=== PATIENT | female | born 1995 | race Caucasian/White ===

== ENCOUNTER 2016-09-13 21:27 | Emergency (ER) | payer OTHER ==
[2016-09-13 21:38] VITALS: RESP 16; TEMP 97.8
[2016-09-13] MEDS ORDERED: IBUPROFEN 800 MG TAB PO STA (23:25)
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
[2016-09-14 00:52] VITALS: BP 117/64; PULSE 71
== END 2016-09-14 01:01 | disposition home or self-care (01) ==
LOC: EC 21:27
DX: R10.12 Left upper quadrant pain (principal); Z79.3 Long term (current) use of hormonal contraceptives; Z88.1 Allergy status to other antibiotic agents
CPT/HCPCS: 76705; 99284

== ENCOUNTER → 2017-01-03 | Outpatient (CLI) | payer OTHER ==
--- NOTE | 2017-01-03 13:22 | US ---
EXAMINATION TYPE: US OB anatomy transabd DATE OF EXAM: 01/03/2017 COMPARISON: NONE HISTORY: O36.62X0 Large for Dates TECHNIQUE: Transabdominal (TA) EXAM MEASUREMENTS: GESTATIONAL AGE / DATING Physician Established: (19 weeks/5 days) EDC: 05/2017 Dates by LMP: (19 weeks/2 days) EDC: 05/27/2017 Dates by First Scan: (19 weeks/0 days) EDC: 05/25/2017 Dates by Current Scan for: (18 weeks/5 days) EDC: 06/01/2017 SURVEY IUP: Single PLACENTA: Posterior PREVIA: No previa FÉLIX: 11.3 cm Normal CERVICAL LENGTH (transabdominal: norm > 3.0cm): 3.8 cm BIOMETRY PRESENTATION: Breech LIE: Oblique BPD: 4.0 cm 18 weeks / 1 days HC: 15.6 cm 18 weeks / 3 days AC: 12.9 cm 18 weeks / 3 days FL: 3.2 cm 20 weeks / 0 days ESTIMATED WEIGHT IN GRAMS: 272 grams ESTIMATED WEIGHT IN LBS/OZS: 0 lbs. 10 oz. WEIGHT PERCENTAGE BASED ON ESTABLISHED DATE: 15 % HC/AC: 1.21 Normal FL/AC: 24 Normal HEART RATE: 153 bpm RHYTHM: Normal ANATOMY SEEN (within normal limits): * Lateral Vent (< 1 cm) 0.8 cm * Cisterna Magna (< 1.1 cm) 0.4 cm * Nuchal Fold (< 0.6 cm) 0.3 cm * Cerebellum (varies with age) 2.0 cm Choroid Plexus (bilateral) Midline Falx Cavus Septi Pellucidi Four Chamber Heart Outflow tracts: LVOT/RVOT Stomach Situs Nose / Lips Diaphragm Kidneys (bilateral) Bladder Cord Insert Three Vessel Cord Longitudinal Spine Transverse Spine Arms (bilateral) Legs (bilateral) MATERNAL WALL MEASUREMENT: 5.0 cm from skin to anterior uterine wall (if exam limited due to body mcclelland bitus). Some exam limitations due to habitus and attenuation. IMPRESSION: Single viable intrauterine . Estimated date of confinement 06/01/2017. Current breech presen tation.
== END | disposition home or self-care (01) ==
LOC: RADUSWWP 12:23
PROVIDERS: ATTEND Obstetrics & Gynecology
DX: O32.1XX0 Maternal care for breech presentation, not applicable or unspecified (principal); Z3A.18 18 weeks gestation of pregnancy
CPT/HCPCS: 76811

== ENCOUNTER → 2017-02-15 | Outpatient (CLI) | payer OTHER ==
[2017-02-15 12:33] LABS: CH 32.1; CHCM 33.3; HCT 33.9 % (34.0-46.0); HDW 2.77; HGB 11.1 gm/dL (11.4-16.0); MCH 31.8 pg (25.0-35.0); MCHC 32.7 g/dL (31.0-37.0); MCV 97.2 fL (80.0-100.0); Mean Platelet Volume 7.8; RBC 3.49 m/uL (3.80-5.40); RDW 14.2 % (11.5-15.5); WBC 12.1 k/uL (4.0-11.0)
== END ==
LOC: LABWHC1 11:01
PROVIDERS: ATTEND Obstetrics & Gynecology
DX: Z34.02 Encounter for supervision of normal first pregnancy, second trimester (principal); Z3A.00 Weeks of gestation of pregnancy not specified
CPT/HCPCS: 36415; 82950; 85027

== ENCOUNTER 2017-03-29 13:56 | Outpatient (CLI) | payer OTHER ==
[2017-03-29 15:09] VITALS: BP 118/56; PULSE 91; RESP 18; TEMP 96.6
--- NOTE | 2017-03-30 05:56 | P.MSEPDOC ---
Presenting Problems - Arrival Data Date of Arrival on Unit: 03/29/17 Time of Arrival on Unit: 13:55 Mode of Transport: Ambulatory - Complaint OB-Reason for Admission/Chief Complaint: Elevated Blood Pressure Medical History - Information : 1 Para: 0 Term: 0 : 0 Abortions: Spontaneous or Elective: 0 Number of Living Children: 0 - Gestational Age Expected Date of Delivery: 05/27/17 Gestational Age by MARLENE (wks/days): 31 Weeks and 5 Days Review of Systems - Review of Systems Constitutional: No problems Breast: No problems ENT: No problems Cardiovascular: No problems Respiratory: No problems Gastrointestinal: No problems Genitourinary: No problems Musculoskeletal: No problems Neurological: No problems Skin: No problems Vital Signs - Temperature Temperature: 96.6 F Temperature Source: Tympanic - Pulse Pulse Oximetery Pulse Rate: 91 Pulse Assessment Method: Pulse Oximetry - Respirations Respiratory Rate: 18 Oxygen Delivery Method: Room Air - Blood Pressure Right Arm Blood Pressure: 118/56 Blood Pressure Mean: 76 Blood Pressure Source: Automatic Cuff Medical Screen Scoring (Pre) - Cervical Exam Dilation: Exam Deferred Effacement: Exam Deferred Membranes: Intact - Uterine Contractions Frequency: N/A Duration: N/A Intensity: N/A - Maternal Vital Signs Maternal Temperature: N/A Maternal Blood Pressure: N/A Signs of Preeclampsia: N/A Maternal Respirations: N/A - Maternal Trauma Maternal Trauma: N/A - Assessment Baseline FHR: 135 Heart Rate - NICHD Category: Category I (Normal) = 0 NST: Reactive Position: N/A Station: N/A - Total Score Total Score (Pre): 0 - Level of Risk Level of Risk: Low (0-5) Physician Notification (Pre) - Physician Notified Physician Notified Date: 03/29/17 Physician Notified Time: 14:45 Physician/Practitioner Notifed:: Dr. Epperson Spoke With: Dr. Epperson - Notification Comment Comment: Notified Dr. Epperson of pts BPs and reactive NST with 2 variables noted at 1436 down to 100 bpm for 15-20 seconds. Orders for discharge received. Disposition - Disposition OB Disposition: Discharge to home Discharge Date: 03/29/17 Discharge Time: 15:00 I agree with the RN Medical Screening Exam: Yes Risk & Benefit of care provided described in d/c instruction: Yes Diagnosis: GESTATIONAL HTN W/O SIGNIFICANT PROTEINURIA, THIRD TRIMESTER (Patient 's blood pressures were normal without evidence of gestational hypertension.)
== END 2017-03-29 15:00 | disposition home or self-care (01) ==
LOC: FBPOP 13:56
PROVIDERS: ATTEND Obstetrics & Gynecology
DX: O13.3 Gestational [pregnancy-induced] hypertension without significant proteinuria, third trimester (principal); Z3A.31 31 weeks gestation of pregnancy
CPT/HCPCS: 59025; G0463; 99213

== ENCOUNTER 2017-04-04 15:26 | Outpatient (CLI) | payer OTHER ==
[2017-04-04 15:54] VITALS: RESP 17; TEMP 98.1
[2017-04-04 16:21] VITALS: BP 117/66; PULSE 87
--- NOTE | 2017-04-04 17:30 | P.MSEPDOC ---
Presenting Problems - Arrival Data Date of Arrival on Unit: 04/04/17 Time of Arrival on Unit: 15:26 Mode of Transport: Ambulatory - Complaint OB-Reason for Admission/Chief Complaint: Decreased Movement Comment: pt reported not feeling fetus move since 2330 last night, pt was able to feel movement after being placed on for nst Medical History - Information : 1 Para: 0 Term: 0 : 0 Abortions: Spontaneous or Elective: 0 Number of Living Children: 0 - Gestational Age Gestational Age by MARLENE (wks/days): 32 Weeks and 3 Days Review of Systems - Review of Systems Constitutional: No problems Breast: No problems ENT: No problems Cardiovascular: No problems Respiratory: No problems Gastrointestinal: No problems Genitourinary: No problems Musculoskeletal: No problems Neurological: No problems Skin: No problems Vital Signs - Temperature Temperature: 98.1 F Temperature Source: Oral - Pulse Right Brachial Pulse Rate: 87 Pulse Assessment Method: Automatic Cuff - Respirations Respiratory Rate: 17 Oxygen Delivery Method: Room Air O2 Sat by Pulse Oximetry: 97 - Blood Pressure Right Arm Blood Pressure: 117/66 Blood Pressure Mean: 83 Blood Pressure Source: Automatic Cuff Medical Screen Scoring (Pre) - Cervical Exam Dilation: Exam Deferred Effacement: Exam Deferred Membranes: Intact - Uterine Contractions Frequency: > 5 minutes apart = 1 Duration: > 40 seconds = 2 Intensity: N/A - Maternal Vital Signs Maternal Temperature: N/A Maternal Blood Pressure: N/A Signs of Preeclampsia: N/A Maternal Respirations: N/A - Maternal Trauma Maternal Trauma: N/A - Assessment Baseline FHR: 140 Heart Rate - NICHD Category: Category I (Normal) = 0 NST: Reactive Position: N/A - Total Score Total Score (Pre): 3 - Level of Risk Level of Risk: Low (0-5) Physician Notification (Pre) - Physician Notified Physician Notified Date: 04/04/17 Physician Notified Time: 16:00 Physician/Practitioner Notifed:: dr fulton Spoke With: dr fulton New Order Received: Yes (la home) Disposition - Disposition OB Disposition: Discharge to home, Written follow up instructions reviewed Discharge Date: 04/04/17 Discharge Time: 16:10 I agree with the RN Medical Screening Exam: Yes Risk & Benefit of care provided described in d/c instruction: Yes Diagnosis: DECREASED MOVEMENTS, THIRD TRIMESTER, FETUS 1
== END 2017-04-04 16:10 | disposition home or self-care (01) ==
LOC: FBPOP 15:26
PROVIDERS: ATTEND Obstetrics & Gynecology
DX: O36.8131 Decreased fetal movements, third trimester, fetus 1 (principal); Z3A.32 32 weeks gestation of pregnancy
CPT/HCPCS: 59025; G0463; 99213

== ENCOUNTER 2017-04-11 18:30 | Outpatient (CLI) | payer OTHER ==
[2017-04-11 18:49] VITALS: BP 128/75; PULSE 88; RESP 18; TEMP 96.7
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
== END 2017-04-11 21:00 | disposition home or self-care (01) ==
LOC: FBPOP 18:30
PROVIDERS: ATTEND Obstetrics & Gynecology
DX: O26.93 Pregnancy related conditions, unspecified, third trimester (principal); Z3A.33 33 weeks gestation of pregnancy
CPT/HCPCS: 59025; G0463; 99213

== ENCOUNTER 2017-05-23 21:24 | Inpatient (IN) | payer OTHER ==
[2017-05-23] MEDS ORDERED: OXYTOCIN 10 UNIT/ML 1 ML VIAL IM PRN (22:09)
[2017-05-23] MEDS ORDERED: CARBOPROST TROMETHAMINE 250 MCG/ML 1 ML AMP IM PRN (22:09)
[2017-05-23] MEDS ORDERED: METHYLERGONOVINE 0.2 MG/ML 1 ML AMP IM PRN (22:09)
[2017-05-23] MEDS ORDERED: LIDOCAINE 1% (PF) 10 MG/ML (30 ML SDV) SQ PRN (22:09)
[2017-05-23] MEDS ORDERED: TERBUTALINE 1 MG/ML VIAL SQ PRN (22:09)
[2017-05-23] MEDS ORDERED: OXYTOCIN 20 UNITS/1000 ML NS 1,000 ML IV SCH (22:15)
[2017-05-23] MEDS: LACTATED RINGERS 1,000 ML IV SCH (22:35)
[2017-05-23 22:57] LABS: Basophils % (A) 0 %; CH 30.3; CHCM 32.2; Eosinophils % (A) 0 %; HCT 36.1 % (34.0-46.0); HDW 2.71; HGB 11.5 gm/dL (11.4-16.0); Luc # (Auto) 0.14; Luc % (Auto) 1; Lymphocytes # (A) 1.9 k/uL (1.0-4.8); Lymphocytes % (A) 16 %; MCH 30.1 pg (25.0-35.0); MCHC 31.8 g/dL (31.0-37.0); MCV 94.7 fL (80.0-100.0); Mean Platelet Volume 8.2; Monocytes # (A) 0.6 k/uL (0-1.0); Monocytes % (A) 5 %; Neutrophils # (A) 8.9 k/uL (1.3-7.7); Neutrophils % (A) 77 %; RBC 3.81 m/uL (3.80-5.40); RDW 15.6 % (11.5-15.5); WBC 11.5 k/uL (4.0-11.0); WBC (Perox) 12.36
[2017-05-23 23:03] VITALS: BMI 39.9
[2017-05-24] MEDS: LACTATED RINGERS 1,000 ML IV SCH ×2 (06:07→13:51)
--- NOTE | 2017-05-24 06:34 | P.HPOB ---
History of Present Illness H&P Date: 05/24/17 Chief Complaint: Contractions and leaking fluid This patient is a pleasant 21-year-old 1 para 0 female estimated date of confinement 05/27/2017 estimated gestational age 39-4/7 weeks gestation who is admitted last evening by Dr. Jarrett with complaints of gush of fluid. Amnio sure is positive however patient does have a large fore bag of water. Patient is having contractions however was placed on Pitocin last evening at around 11: 00. care has been uncomplicated. Review of Systems Constitutional: Denies chills, Denies fever Cardiovascular: Denies chest pain, Denies shortness of breath Respiratory: Denies cough Gastrointestinal: Reports heartburn Genitourinary: Reports Menstruation: Reports amenorrhea Past Medical History Past Medical History: No Reported History History of Any Multi-Drug Resistant Organisms: None Reported Past Surgical History: No Surgical Hx Reported Past Anesthesia/Blood Transfusion Reactions: No Reported Reaction Past Psychological History: No Psychological Hx Reported Smoking Status: Never smoker Past Alcohol Use History: None Reported Past Drug Use History: None Reported - Past Family History Mother Family Medical History: No Reported History Medications and Allergies Home Medications Medication Instructions Recorded Confirmed Type Pnv No.95/Ferrous Fum/Folic AC 1 each PO DAILY 03/29/17 05/23/17 History [ Multivitamin Tablet] Allergies Allergy/AdvReac Type Severity Reaction Status Date / Time sulfamethoxazole Allergy Rash/Hives Verified 05/23/17 22:07 [From Bactrim] trimethoprim [From Bactrim] Allergy Rash/Hives Verified 05/23/17 22:07 Exam - Vital Signs Vital signs: Vital Signs Temp Pulse Resp BP 05/23/17 22:00 98.6 F 98 16 142/84 Intake and Output 05/23/17 05/23/17 05/24/17 14:59 22:59 06:59 Intake Total 1000 Balance 1000 Intake: Intake, IV Titration 1000 Amount Oxytocin 20 Units/1000 ml 1000 Ns 1,000 ml @ 1 MILLIUNIT/MIN 3 mls/hr IV .Q24H ADY Rx#:[id number] Other: # Voids 1 1 Weight 119.295 kg Patient Weight 05/24/17 06:59 Weight 119.295 kg - OBG Physical Exam Abdomen: bowel sounds normal, no diffuse tenderness, no bruit present, no guarding noted, no hepatomegaly, no splenomegaly, no mass Vulva: both: normal Vagina: normal moisture, no discharge Cervix: Cervix is 3-4 cm dilated 80% effaced and vertex presentation there is a bag of water palpable. Cervix: no lesion, no discharge Uterus: enlarged Results blood work shows she is O positive, rubella immune, RPR nonreactive, hepatitis B negative, HIV nonreactive, Glucola was normal, group B strep was negative, ultrasounds have been normal. Result Diagrams: 05/23/17 22:47 Abnormal Lab Results - Last 24 Hours (Table) 05/23/17 Range/Units 22:47 WBC 11.5 H (4.0-11.0) k/uL RDW 15.6 H (11.5-15.5) % Neutrophils # 8.9 H (1.3-7.7) k/uL Assessment and Plan (1) Normal labor Narrative/Plan: This is a pleasant 21-year-old 1 para 0 female 39-4/7 weeks gestation with early labor. Although the amnio sure was positive are not convinced the patient had actual rupture membranes because artificial rupture membranes now shows a large copious amount of fluid. Regardless she is in early labor and plan is to anticipate vaginal delivery. Current Visit: Yes Status: Acute Code(s): O80 - ENCOUNTER FOR FULL-TERM UNCOMPLICATED DELIVERY; Z37.9 - OUTCOME OF DELIVERY, UNSPECIFIED SNOMED Code(s ): 49254025
[2017-05-24] MEDS ORDERED: BUTORPHANOL 1 MG/ML 1 ML VIAL IV PRN (08:11)
[2017-05-24] MEDS ORDERED: LANOLIN CREAM 5 GM TUBE TOPICAL PRN (14:31)
[2017-05-24] MEDS ORDERED: Acetaminophen-Codeine 300-30mg TAB PO PRN (14:31)
[2017-05-24] MEDS ORDERED: WITCH HAZEL 1 EACH MED..PAD TOPICAL PRN (14:31)
[2017-05-24] MEDS ORDERED: SIMETHICONE 80 MG CHEWABLE PO PRN (14:31)
[2017-05-24] MEDS ORDERED: ZOLPIDEM 5 MG TAB PO PRN (14:31)
[2017-05-24] MEDS ORDERED: BENZOCAINE/MENTHOL SPRAY 1 GM/SPRAY AEROSOL TOPICAL PRN (14:31)
[2017-05-24] MEDS ORDERED: HYDROCORTISONE 2.5% RECTAL CREAM 30 GM TUBE RECTAL PRN (14:31)
[2017-05-24] MEDS ORDERED: BISACODYL 10 MG SUPP RECTAL PRN (14:31)
[2017-05-24] MEDS ORDERED: ACETAMINOPHEN TAB 325 MG TAB PO PRN (14:31)
[2017-05-24] MEDS ORDERED: diphenhydrAMINE 50 MG/ML 1 ML VIAL IVP PRN (14:31)
[2017-05-24] MEDS ORDERED: OXYTOCIN 20 UNITS/1000 ML NS 1,000 ML IV SCH (14:31)
[2017-05-24] MEDS ORDERED: DIPH,PERTUS(ACELL)TETVAC-LF 0.5 ML VIAL IM ONE (14:31)
[2017-05-24] MEDS ORDERED: diphenhydrAMINE 25 MG CAP PO PRN (14:31)
[2017-05-24] MEDS: SENNOSIDES-DOCUSATE SODIUM 1 EACH TAB PO SCH ×2 (16:04→20:06)
--- NOTE | 2017-05-24 17:56 | P.PROBDLV ---
Vaginal Delivery Note - . Vaginal Delivery Note: Normal vaginal delivery viable female Apgars 8 and 9 delivery time is 1421 hrs. Please see dictated H&P for intimate details of this patient's admission. Brief summary this is a pleasant 21-year-old 1 para 0 female 39-4/7 weeks gestation admitted with suspected spontaneous rupture membranes. Patient has artificial rupture of a 4 bag this morning at 3-4 cm dilated. She has Pitocin augmentation of labor. Patient's labor progresses and she does not want anything for pain control. Patient does get to complete pushes the head to the perineum. Posterior perineum was supported and we have controlled delivery of the 's head over the intact perineum. Mouth and nares are bulb suctioned. There is no evidence of nuchal cord. With gentle downward traction we then have delivery the anterior and posterior shoulder and rest this 's body. This is a vigorous viable female infant Apgars are 8 and 9 delivery time is 1421 hrs. After delivery of the infant the umbilical cords doubly clamped and cut appears to be trivascular. The placenta is then spontaneously delivered intact. Inspection of the perineum shows a first- degree right labial laceration and a first-degree left vaginal laceration. Right labial laceration does dissect up into the right vagina. Using a 3-0 suture and local anesthetic I reapproximate this is best as possible. Good hemostasis is noted. Estimated blood loss is 250 mL. There are no complications. and mother are stable in delivery room.
[2017-05-24] MEDS: IBUPROFEN 600 MG TAB PO PRN (20:06)
--- NOTE | 2017-05-25 06:28 | P.PNOBGVD ---
Subjective - Subjective Patient reports: Reports appetite normal, Reports voiding normally, Reports pain well controlled, Reports ambulating normally : doing well Objective - Latest Vital Signs Latest vital signs: Vital Signs Temp Pulse Resp BP 05/24/17 20:00 97.8 F 104 H 16 124/67 05/24/17 16:56 98.1 F 97 16 128/72 05/24/17 16:26 97 16 126/73 05/24/17 15:56 90 16 129/72 05/24/17 15:41 113 H 16 115/69 05/24/17 15:26 106 H 16 151/69 05/24/17 15:11 113 H 16 127/65 05/24/17 14:56 97.2 F L 90 16 132/67 Intake and Output 05/24/17 05/24/17 05/25/17 14:59 22:59 06:59 Intake Total 1000 Output Total 250 Balance 750 Intake: IV 1000 Invasive Line 1 1000 Output: Estimated Blood Loss 250 Other: # Voids 1 1 - Exam Lungs: bilateral: normal Chest: Normal S1, Normal S2 Extremities: Present: normal Abdomen: Present: normal appearance, soft Uterus: Present: normal, firm Assessment and Plan Assessment: day #1. Patient is resting without complaints. Vital signs are stable and she is afebrile. She is having normal lochia. My impression this is a normal course. Plan is to continue routine care discharge home tomorrow. (1) Normal labor Current Visit: Yes Status: Acute Code(s): O80 - ENCOUNTER FOR FULL-TERM UNCOMPLICATED DELIVERY; Z37.9 - OUTCOME OF DELIVERY, UNSPECIFIED SNOMED Code(s ): 88757239
[2017-05-25] MEDS: IBUPROFEN 600 MG TAB PO PRN ×2 (08:40→20:53)
[2017-05-25] MEDS: SENNOSIDES-DOCUSATE SODIUM 1 EACH TAB PO SCH ×2 (08:40→20:53)
[2017-05-25 11:24] LABS: Basophils % (A) 0 %; CH 30.8; CHCM 32.4; Eosinophils % (A) 0 %; HCT 29.2 % (34.0-46.0); HDW 2.85; Luc # (Auto) 0.25; Luc % (Auto) 2; Lymphocytes # (A) 1.5 k/uL (1.0-4.8); Lymphocytes % (A) 10 %; MCH 30.4 pg (25.0-35.0); MCHC 31.8 g/dL (31.0-37.0); MCV 95.5 fL (80.0-100.0); Mean Platelet Volume 7.8; Monocytes # (A) 0.6 k/uL (0-1.0); Monocytes % (A) 4 %; Neutrophils # (A) 12.5 k/uL (1.3-7.7); Neutrophils % (A) 84 %; RBC 3.06 m/uL (3.80-5.40); RDW 14.5 % (11.5-15.5); WBC 14.9 k/uL (4.0-11.0); WBC (Perox) 15.32
[2017-05-25 11:28] LABS: HGB 9.3 gm/dL (11.4-16.0)
[2017-05-25] MEDS ORDERED: CALCIUM CARBONATE 500 MG CHEWABLE PO PRN (13:39)
[2017-05-25] MEDS: Acetaminophen-Codeine 300-30mg TAB PO PRN ×2 (17:09→22:04)
[2017-05-25] MEDS: PRENATAL VIT-IRON-FOLIC ACID 1 EACH CAP PO SCH (19:23)
[2017-05-26] MEDS: Acetaminophen-Codeine 300-30mg TAB PO PRN ×4 (01:33→23:44)
[2017-05-26] MEDS: IBUPROFEN 600 MG TAB PO PRN ×2 (04:26→19:52)
--- NOTE | 2017-05-26 05:42 | P.PNOBGVD ---
Subjective - Subjective Patient reports: Reports appetite normal, Reports voiding normally, Reports pain well controlled, Reports ambulating normally : doing well Objective - Latest Vital Signs Latest vital signs: Vital Signs Temp Pulse Resp BP Pulse Ox 05/26/17 00:00 98.1 F 82 18 122/70 100 05/25/17 16:00 98.7 F 99 18 115/62 05/25/17 08:00 99.6 F 103 H 16 116/58 Intake and Output 05/25/17 05/25/17 05/26/17 14:59 22:59 06:59 Other: # Voids 1 - Exam Lungs: bilateral: normal Chest: Normal S1, Normal S2 Extremities: Present: normal Abdomen: Present: normal appearance, soft Uterus: Present: normal, firm - Labs Labs: Abnormal Lab Results - Last 24 Hours (Table) 05/25/17 Range/Units 10:53 WBC 14.9 H (4.0-11.0) k/uL RBC 3.06 L (3.80-5.40) m/uL Hgb 9.3 L D (11.4-16.0) gm/dL Hct 29.2 L (34.0-46.0) % Neutrophils # 12.5 H (1.3-7.7) k/uL Assessment and Plan Assessment: day #2. Patient is resting without complaints. Vital signs are stable she's afebrile. CBC yesterday was normal. Patient is having normal lochia. Uterus is firm nontender. Impression is normal course. Plan is to discharge home today and continue routine care. (1) Normal labor Current Visit: Yes Status: Acute Code(s): O80 - ENCOUNTER FOR FULL-TERM UNCOMPLICATED DELIVERY; Z37.9 - OUTCOME OF DELIVERY, UNSPECIFIED SNOMED Code(s ): 07376479
--- NOTE | 2017-05-26 05:44 | P.DS ---
Providers Date of admission: 05/23/17 21:43 Expected date of discharge: 05/26/17 Attending physician: Cristopher Epperson Primary care physician: Stated None - Discharge Diagnosis(es) (1) Normal labor Current Visit: Yes Status: Acute Hospital Course: Please see dictated H&P for intimate details of this patient's admission. Brief summary is a pleasant 21-year-old 1 para 0 female 39-4/7 weeks gestation admitted to labor and delivery for active labor. Patient was on have a vaginal delivery viable female . Please see dictated delivery note. day #2 patient's felt be stable for discharge home follow up with me in 6 weeks. Procedures: Normal spontaneous vaginal delivery. Patient Condition at Discharge: Good Plan - Discharge Summary New Discharge Prescriptions: New Acetaminophen-Codeine 300-30mg [Tylenol w/codeine #3] 1 - 2 each PO Q4HR PRN #30 tab PRN Reason: Mild Pain exceeding Tylenol Ibuprofen [Motrin] 600 mg PO Q6HR PRN #40 tab PRN Reason: Mild Pain Or Fever >= 100.5 No Action Pnv No.95/Ferrous Fum/Folic AC [ Multivitamin Tablet] 1 tab PO DAILY Discharge Medication List Pnv No.95/Ferrous Fum/Folic AC [ Multivitamin Tablet] 1 tab PO DAILY [History] Acetaminophen-Codeine 300-30mg [Tylenol w/codeine #3] 1 - 2 each PO Q4HR PRN # 30 tab 05/26/17 [Rx] Ibuprofen [Motrin] 600 mg PO Q6HR PRN #40 tab 05/26/17 [Rx] Follow up Appointment(s)/Referral(s): Cristopher Epperson MD [STAFF PHYSICIAN] - 07/12/17 9:45 am Patient Instructions/Handouts: Vaginal Delivery (DC) Activity/Diet/Wound Care/Special Instructions: No intercourse or anything per vagina for 6 weeks. Please call if any fever, chills, excessive vaginal bleeding, and/or abdominal pain Discharge Disposition: HOME SELF-CARE
[2017-05-26] MEDS: SENNOSIDES-DOCUSATE SODIUM 1 EACH TAB PO SCH ×2 (10:41→19:52)
[2017-05-26] MEDS: PRENATAL VIT-IRON-FOLIC ACID 1 EACH CAP PO SCH (14:19)
[2017-05-26] MEDS ORDERED: ceFAZolin 2 GM in SODIUM CHLORIDE 0.9% 100 ML IVPB ONE (15:44)
[2017-05-26] MEDS ORDERED: ceFAZolin IN SWFI 2 GM/20 ML SYRINGE IVP ONE (16:00)
[2017-05-26] MEDS: LACTATED RINGERS 1,000 ML IV SCH (16:37)
[2017-05-26 16:41] LABS: Basophils % (A) 0 %; Eosinophils # (A) 0.1 k/uL (0-0.7); Eosinophils % (A) 1 %; HCT 28.5 % (34.0-46.0); HDW 2.67; Luc # (Auto) 0.05; Luc % (Auto) 1; Lymphocytes # (A) 0.6 k/uL (1.0-4.8); Lymphocytes % (A) 6 %; MCHC 31.7 g/dL (31.0-37.0); MCV 94.5 fL (80.0-100.0); Mean Platelet Volume 8.2; Monocytes # (A) 0.5 k/uL (0-1.0); Monocytes % (A) 5 %; Neutrophils # (A) 8.8 k/uL (1.3-7.7); Neutrophils % (A) 87 %; RBC 3.02 m/uL (3.80-5.40); RDW 15.8 % (11.5-15.5)
[2017-05-26 17:10] LABS: WBC 10.2 k/uL (4.0-11.0)
--- NOTE | 2017-05-26 17:11 | P.PN ---
Progress Note - Text Progress Note Date: 05/26/17 I was called this afternoon because the patient has developed a temperature to 103. She did develop some chills. She does not have any abdominal pain or cough. She has complained of left lower hip pain since yesterday and continues today. This pain does inhibit her ambulation. I repeated a CBC which is normal with a white count of 10. Examination shows her lungs to be clear, her abdomen to be soft and nontender and no uterine tenderness. She has no CVA tenderness. Pelvic examination shows her area of laceration to be healing well without cellulitis induration or hematoma. Plan at this time is to continue the Ancef which I started earlier and going to add gentamicin cut she still febrile. Due to this left sciatic type pain I am going to get a CAT scan. If she continues to have this discomfort and we'll consider orthopedic evaluation. At this time I have no etiology for her fever. I have canceled her discharge.
[2017-05-26] MEDS ORDERED: RX INFO: IV CONTRAST WAS GIVEN 1 EACH MISC MISCELLANE PRN (17:16)
[2017-05-26] MEDS ORDERED: GENTAMICIN PER PHARMACY MISCELLANE SCH (17:30)
[2017-05-26 17:36] LABS: Basophils % (A) 0 %; CH 29.8; Eosinophils % (A) 0 %; HCT 27.7 % (34.0-46.0); HDW 2.63; HGB 8.8 gm/dL (11.4-16.0); Luc # (Auto) 0.08; Luc % (Auto) 1; Lymphocytes # (A) 0.6 k/uL (1.0-4.8); Lymphocytes % (A) 6 %; MCH 29.8 pg (25.0-35.0); MCHC 31.8 g/dL (31.0-37.0); MCV 93.8 fL (80.0-100.0); Mean Platelet Volume 8.4; Monocytes # (A) 0.5 k/uL (0-1.0); Monocytes % (A) 5 %; Neutrophils % (A) 88 %; RBC 2.96 m/uL (3.80-5.40); RDW 15.7 % (11.5-15.5); WBC 10.2 k/uL (4.0-11.0); WBC (Perox) 10.97
[2017-05-26] MEDS: IOHEXOL 350 MG/ML 25 ML BOTTLE (ORAL USE) PO PRN ×2 (17:54→18:52)
[2017-05-26] MEDS: GENTAMICIN 140 MG in SODIUM CHLORIDE 0.9% 100 ML IVPB SCH (19:40)
--- NOTE | 2017-05-26 20:05 | CT ---
EXAMINATION TYPE: CT abdomen pelvis w con DATE OF EXAM: 05/26/2017 REFERENCE: NONE HISTORY: Fever and left hip pain s/p vaginal delivery HISTORY: Fever and left hip pain. REFERENCE: NONE CT DLP: 2112.7 mGy Automated exposure control for dose reduction was used. TECHNIQUE: Helical acquisition through the abdomen and pelvis was obtained following the oral ingesti on of with Oral Contrast and following intravenous administration of 100 mL of Omnipaque 300. The brady a was reformatted in axial, coronal and sagittal projections. FINDINGS: Visualized portions of the lungs are clear. There is no pleural or pericardial fluid. The heart is mildly enlarged. Within the abdomen, the liver is prominent measuring 22 cm. The spleen is enlarged measuring 17 cm. T he gallbladder is normal. Both adrenal glands are normal. Both kidneys demonstrate function and appear morphologically normal. The pancreas is unremarkable. There is no significant retroperitoneal, iliac or inguinal adenopathy. The bladder is unremarkable. The uterus is very bulky as this patient has just undergone a delivery. The ovaries appear normal. There is no significant diverticular change and there is no radiographic evidence of diverticulitis. The appendix is normal. Small bowel loops are normal. No free fluid and no free air is seen. Both hips appear unremarkable. No bony destructive lesion is seen. No significant degenerative change s seen. IMPRESSION: 1. MILD CARDIOMEGALY. 2. HEPATOSPLENOMEGALY. 3. BULKY UTERUS IN KEEPING WITH RECENT VAGINAL DELIVERY.
[2017-05-26] MEDS: ceFAZolin 1,000 MG in DEXTROSE/WATER 1 50ML.BAG IVPB SCH (23:48)
[2017-05-27] MEDS: LACTATED RINGERS 1,000 ML IV SCH ×3 (02:19→17:29)
[2017-05-27] MEDS: GENTAMICIN 140 MG in SODIUM CHLORIDE 0.9% 100 ML IVPB SCH ×3 (03:56→20:19)
[2017-05-27] MEDS: Acetaminophen-Codeine 300-30mg TAB PO PRN ×3 (03:56→20:15)
[2017-05-27 05:43] LABS: Basophils % (A) 0 %; CH 30.1; CHCM 31.9; Eosinophils # (A) 0.1 k/uL (0-0.7); Eosinophils % (A) 1 %; HCT 26.6 % (34.0-46.0); HDW 2.67; HGB 8.4 gm/dL (11.4-16.0); Luc # (Auto) 0.12; Luc % (Auto) 2; Lymphocytes % (A) 12 %; MCHC 31.6 g/dL (31.0-37.0); MCV 95.1 fL (80.0-100.0); Mean Platelet Volume 8.1; Monocytes # (A) 0.6 k/uL (0-1.0); Monocytes % (A) 7 %; Neutrophils # (A) 6.6 k/uL (1.3-7.7); Neutrophils % (A) 78 %; RBC 2.79 m/uL (3.80-5.40); RDW 15.7 % (11.5-15.5); WBC 8.5 k/uL (4.0-11.0); WBC (Perox) 9.25
--- NOTE | 2017-05-27 06:21 | P.PNOBGVD ---
Subjective - Subjective Patient reports: Reports appetite normal, Reports voiding normally, Reports pain well controlled, Reports ambulating normally [place]: doing well Objective - Latest Vital Signs Latest vital signs: Vital Signs Temp Pulse Resp BP Pulse Ox 05/27/17 00:41 97.8 F 83 16 132/74 05/26/17 19:30 99.1 F 91 18 120/70 100 05/26/17 17:00 103.1 F H 05/26/17 15:20 103 F H 100 16 135/73 05/26/17 08:00 98.8 F 93 16 128/49 Intake and Output 05/26/17 05/26/17 05/27/17 14:59 22:59 06:59 Intake Total 100 Balance 100 Intake: Intake, IV Titration 100 Amount Gentamicin 140 mg In 100 Sodium Chloride 0.9% 100 ml @ 103.5 mls/hr IVPB Q8H [facility] Rx#:[id number] Other: # Voids 1 - Exam Lungs: bilateral: normal Chest: Normal S1, Normal S2 Extremities: Present: normal Abdomen: Present: normal appearance, soft Uterus: Present: normal, firm - Labs Labs: Abnormal Lab Results - Last 24 Hours (Table) 05/26/17 05/26/17 05/27/17 Range/Units 16:30 17:22 05:25 RBC 3.02 L 2.96 L 2.79 L (3.80-5.40) m/uL Hgb 9.0 L 8.8 L 8.4 L (11.4-16.0) gm/dL Hct 28.5 L 27.7 L 26.6 L (34.0-46.0) % RDW 15.8 H 15.7 H 15.7 H (11.5-15.5) % Neutrophils # 8.8 H 9.0 H (1.3-7.7) k/uL Lymphocytes # 0.6 L 0.6 L (1.0-4.8) k/uL Assessment and Plan (1) Normal labor Narrative/Plan: Post day #3. Patient developed a temperature to 103 yesterday. Patient is placed on Ancef and gentamicin. I did do a CAT scan because she is having significant left lower back and sciatic type pain, CAT scan was normal. Serial CBCs show no evidence of a white count elevation. Uterus remains firm and she has no CVA tenderness. I'm uncertain as to the etiology of her fever but she has defervesced. Plan is to continue the IV antibiotics until later today and then change management expert to oral antibiotics and most likely discharge home tomorrow. At this time I have no evidence of endometritis or other infectious etiologies. Patient's sciatic pain appears to be improving as well. I have placed her on Chromagen due to anemia which is just from delivery. Current Visit: Yes Status: Acute Code(s): O80 - ENCOUNTER FOR FULL-TERM UNCOMPLICATED DELIVERY; Z37.9 - OUTCOME OF DELIVERY, UNSPECIFIED SNOMED Code(s ): 74703071
[2017-05-27] MEDS: IBUPROFEN 600 MG TAB PO PRN ×2 (09:12→23:34)
[2017-05-27] MEDS: ceFAZolin 1,000 MG in DEXTROSE/WATER 1 50ML.BAG IVPB SCH ×3 (09:14→23:10)
[2017-05-27] MEDS: IRON AG/C/B12/CA/SUC.ACID/STOM 1 EACH TAB PO SCH (09:14)
[2017-05-27] MEDS: SENNOSIDES-DOCUSATE SODIUM 1 EACH TAB PO SCH ×2 (10:43→21:24)
--- NOTE | 2017-05-27 11:34 | P.PN ---
Progress Note - Text Progress Note Date: 05/27/17 Patient had another temperature/isolated to 101. Other than chills she is having no other symptoms. Plan at this time is to check urine and blood cultures. Also due to the unknown etiology of her fevers and going to ask infectious disease to see her for evaluation This time we'll continue IV antibiotics, reevaluate pending further fevers and ID evaluation.
[2017-05-27] MEDS: PRENATAL VIT-IRON-FOLIC ACID 1 EACH CAP PO SCH (17:29)
[2017-05-27] MEDS ORDERED: GENTAMICIN TROUGH DUE 1 EACH MISC MISCELLANE ONE (18:00)
[2017-05-27 20:03] LABS: Anion Gap 5 mmol/L; Blood Urea Nitrogen 9 mg/dL (7-17); Calcium 8.5 mg/dL (8.4-10.2); Carbon Dioxide 26 mmol/L (22-30); Chloride 106 mmol/L (98-107); Glucose 81 mg/dL (74-99); Non-African American GFR(MDRD) >60 (>60 ml/min/1.73 sqM); Potassium 4.3 mmol/L (3.5-5.1); Sodium 137 mmol/L (137-145)
[2017-05-27] MEDS ORDERED: GENTAMICIN PEAK DUE 1 EACH MISC MISCELLANE ONE (20:30)
--- NOTE | 2017-05-28 | P.CONS ---
History of Present Illness - Reason for Consult Consult date: 05/27/17 - Chief Complaint Fever - History of Present Illness Pleasant 21-year-old female Who presented for a normal spontaneous vaginal delivery. Apparently had somewhat prolonged ruptured membranes. Eventually has delivered a healthy female. The patient herself however developed fever to 103.. She was treated with antimicrobial therapy with cefazolin and gentamicin as well as antipyretics. She's had improvement but then again was febrile today. Because of the recurrent fever the infectious diseases consultation was requested. The patient was she feels considerably better today. Her fevers have improved. Her discomforts improved. She's inputting much more readily. However is complaining of significant pain that she has from the left buttocks area onto the left leg. She felt of the leg might be slightly increased in size. However is noted is not having any difficulties with ambulation today as compared to yesterday. She has no decreased sensation to the left leg. No other neurological complaints. She denying any breast pain. Her milk has started to flow well at this time. Vaginal drainage has improved. She's having no snipping abdominal or lower abdominal pain. Review of Systems As noted complains of fever with chills that have now improved HEENT:Denies headache or acute visual change. Denies sinus or mouth discomforts. Denies neck stiffness or pain. Denies significant oral cavity pain. Denies difficulty on swallowing. Lungs: Denies significant shortness of breath, cough, sputum production, or hemoptysis. Cardiovascular: Denies significant shortness of breath, chest pain, chest wall pain, orthopnea, dyspnea on exertion, syncope Gastrointestinal:Denies nausea, vomiting, diarrhea, constipation, hematemesis, melena, hematochezia. No no significant change of bowel habit noticed. Musculoskeletal: denies significant myalgias or arthralgias. No new joint swelling. Denies new back pain. Skin: No rashes but did have some difficulty with some concern to edema left leg Neuro: Denies headache or visual change. Denies any new onset weakness or difficulty with ambulation. Denies falls or seizures. Skin as noted per the HPI some sciatic-like pain to the left leg. Psychiatric:Denies anxiety or depression. Endocrine: Denies significant fatigue, Past Medical History Past Medical History: No Reported History History of Any Multi-Drug Resistant Organisms: None Reported Past Surgical History: No Surgical Hx Reported Past Anesthesia/Blood Transfusion Reactions: No Reported Reaction Past Psychological History: No Psychological Hx Reported Additional Psychological History / Comment(s): Single lives with her boyfriend. Has had her first child. 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 no experience. No Travel history. No animal exposures Smoking Status: Never smoker Past Alcohol Use History: None Reported Past Drug Use History: None Reported - Past Family History Mother Family Medical History: No Reported History Medications and Allergies Home Medications and Allergies Comment(s): Current Medications Acetaminophen (Tylenol Tab) 650 mg PO Q4HR PRN PRN Reason: Mild Pain or Fever >= 100.5 Acetaminophen/Codeine Phosphate (Tylenol #3) 1 each PO Q4HR PRN PRN Reason: Mild Pain exceeding Tylenol Acetaminophen/Codeine Phosphate (Tylenol #3) 2 each PO Q4HR PRN PRN Reason: Moderate to Severe Pain Last Admin: 05/27/17 20:15 Dose: 2 each Benzocaine/Menthol (Dermoplast [place]) 1 gm TOPICAL TID PRN PRN Reason: Perineal Discomfort Last Admin: 05/24/17 15:01 Dose: 1 gm Bisacodyl (Dulcolax) 10 mg RECTAL DAILY PRN PRN Reason: Constipation Calcium Carbonate/Glycine (Tums) 500 mg PO TID PRN PRN Reason: Heartburn Diphenhydramine HCl (Benadryl) 25 mg PO Q6HR PRN PRN Reason: Mild Itching Emollient Ointment (Lanolin) 1 applic TOPICAL Q1HR PRN PRN Reason: Breast Feeding Hydrocortisone (Proctosol-Hc 2.5%) 1 applic RECTAL BID PRN PRN Reason: Hemorrhoids Cefazolin Sodium/Dextrose 1, (000 mg/ IV Solution) 50 mls @ 100 mls/hr IVPB Q8HR [facility] Last Admin: 05/27/17 23:10 Dose: 100 mls/hr Lactated Ringer's (Lactated Ringers) 1,000 mls @ 125 mls/hr IV .Q8H [facility] Last Admin: 05/27/17 17:29 Dose: Not Given Gentamicin Sulfate 140 mg/ (Sodium Chloride) 103.5 mls @ 103.5 mls/hr IVPB Q8H [facility] Last Admin: 05/27/17 20:19 Dose: 103.5 mls/hr Ibuprofen (Motrin) 600 mg PO Q6HR PRN PRN Reason: Mild Pain or Fever >= 100.5 Last Admin: 05/27/17 23:34 Dose: 600 mg Iron/B12/Vitamin C/Folic Acid (Chromagen Lf) 1 each PO DAILY [facility] Last Admin: 05/27/17 09:14 Dose: 1 each Miscellaneous Information (Rx Info: Iv Contrast Was Given) 1 each MISCELLANE DAILY PRN PRN Reason: Per Protocol Stop: 05/28/17 17:17 Multivi/Iron Carb/Fe Sulf/FA/Prenat (-U Capsule) 1 each PO DAILY [facility] Last Admin: 05/27/17 17:29 Dose: Not Given Senna/Docusate Sodium (Senokot-S) 2 each PO BID@0800,1999 [facility] Last Admin: 05/27/17 21:24 Dose: Not Given Simethicone (Mylicon Chew) 80 mg PO HS PRN PRN Reason: Indigestion Witch Radhika (Tucks Medicated Pads) 1 each TOPICAL DAILY PRN PRN Reason: Perineal Discomfort Last Admin: 05/24/17 15:01 Dose: 1 each Zolpidem Tartrate (Ambien) 5 mg PO HS PRN PRN Reason: Insomnia Home Medications Medication Instructions Recorded Confirmed Type Pnv No.95/Ferrous Fum/Folic AC 1 tab PO DAILY 03/29/17 05/24/17 History [ Multivitamin Tablet] Acetaminophen-Codeine 300-30mg 1 - 2 each PO Q4HR PRN #30 tab 05/26/17 Rx [Tylenol w/codeine #3] Ibuprofen [Motrin] 600 mg PO Q6HR PRN #40 tab 05/26/17 Rx Allergies Allergy/AdvReac Type Severity Reaction Status Date / Time sulfamethoxazole Allergy Rash/Hives Verified 05/23/17 22:07 [From Bactrim] trimethoprim [From Bactrim] Allergy Rash/Hives Verified 05/23/17 22:07 Physical Exam Vitals: Vital Signs Temp Pulse Resp BP Pulse Ox 05/27/17 20:55 100.0 F H 05/27/17 20:00 100.3 F H 94 16 144/74 100 05/27/17 16:00 97.9 F 80 16 122/70 05/27/17 12:23 97.7 F 78 16 136/83 05/27/17 10:40 98.2 F 05/27/17 08:30 101.0 F H 99 16 134/75 05/27/17 00:41 97.8 F 83 16 132/74 Intake and Output 05/27/17 05/27/17 05/28/17 14:59 22:59 06:59 Intake Total 100 Output Total 800 Balance -800 100 Intake: IV 100 Gentamicin 140 mg In 100 Sodium Chloride 0.9% 100 ml @ 103.5 mls/hr IVPB Q8H [facility] Rx#:[id number] Output: Urine 800 Straight 800 Other: # Voids 1 Obese 21-year-old female . HEENT: Anicteric conjunctiva are pink and moist nasal mucosa grossly intact without significant lesions, there is no thrush. Neck: The neck is supple without significant lymphadenopathy or thyromegaly. Lungs: Good bilateral air entry without significant crackles or wheezing. There is no significant bronchial sounds. There is no egophony or dullness. Heart: Regular rate and rhythm with an audible S1-S2, no S3 no S4. There is no significant murmur click or rub, PMI was nondisplaced. Abdomen: Positive bowel sounds soft and nontender without palpable masses or organomegaly. There was no guarding or rebound. Uterus is palpable and nontender no tenderness to the groin. Extremities: The upper extremities have excellent pulses they are symmetric, no significant petechiae or telangiectasia. No splinter hemorrhages were noted. The lower extremities are free from significant edema. The peripheral pulses were 2+ and symmetric. There is some bruising to the right medial thigh The ankles are measured and are similar in size. No evidence of any significant edema is noted to either ankle. No calf or thigh edema is noted. No asymmetry is noted. There is no area of tenderness from the left buttocks at the lateral aspect of the left leg, with pressure improves the discomfort. Neuro: Awake alert oriented to person place and time. There are no acute new gross focal sensory motor deficits. Results CBC & Chem 7: 05/27/17 05:25 05/27/17 19:33 Labs: Abnormal Lab Results - Last 24 Hours (Table) 05/27/17 Range/Units 05:25 RBC 2.79 L (3.80-5.40) m/uL Hgb 8.4 L (11.4-16.0) gm/dL Hct 26.6 L (34.0-46.0) % RDW 15.7 H (11.5-15.5) % Microbiology - Last 24 Hours (Table) 05/27/17 09:30 Urine Culture - Preliminary Urine,Catheterized Laboratory Results WBC 8.5 k/uL (4.0-11.0) 05/27/17 05:25 RBC 2.79 m/uL (3.80-5.40) L 05/27/17 05:25 Hgb 8.4 gm/dL (11.4-16.0) L 05/27/17 05:25 Hct 26.6 % (34.0-46.0) L 05/27/17 05:25 MCV 95.1 fL (80.0-100.0) 05/27/17 05:25 MCH 30.0 pg (25.0-35.0) 05/27/17 05:25 MCHC 31.6 g/dL (31.0-37.0) 05/27/17 05:25 RDW 15.7 % (11.5-15.5) H 05/27/17 05:25 Plt Count 252 k/uL (150-450) 05/27/17 05:25 Neutrophils % 78 % 05/27/17 05:25 Lymphocytes % 12 % 05/27/17 05:25 Monocytes % 7 % 05/27/17 05:25 Eosinophils % 1 % 05/27/17 05:25 Basophils % 0 % 05/27/17 05:25 Neutrophils # 6.6 k/uL (1.3-7.7) 05/27/17 05:25 Lymphocytes # 1.0 k/uL (1.0-4.8) 05/27/17 05:25 Monocytes # 0.6 k/uL (0-1.0) 05/27/17 05:25 Eosinophils # 0.1 k/uL (0-0.7) 05/27/17 05:25 Basophils # 0.0 k/uL (0-0.2) 05/27/17 05:25 Sodium 137 mmol/L (137-145) 05/27/17 19:33 Potassium 4.3 mmol/L (3.5-5.1) 05/27/17 19:33 Chloride 106 mmol/L (98-107) 05/27/17 19:33 Carbon Dioxide 26 mmol/L (22-30) 05/27/17 19:33 Anion Gap 5 mmol/L 05/27/17 19:33 BUN 9 mg/dL (7-17) 05/27/17 19:33 Creatinine 0.60 mg/dL (0.52-1.04) 05/27/17 19:33 Est GFR (MDRD) Af Amer >60 (>60 ml/min/1.73 sqM) 05/27/17 19:33 Est GFR (MDRD) Non-Af >60 (>60 ml/min/1.73 sqM) 05/27/17 19:33 Glucose 81 mg/dL (74-99) 05/27/17 19:33 Calcium 8.5 mg/dL (8.4-10.2) 05/27/17 19:33 Gentamicin Peak 3.8 ug/mL 05/27/17 22:45 Gentamicin Trough 0.9 ug/mL 05/27/17 19:33 Microbiology 05/27/17 09:30 Urine,Catheterized Urine Culture - Preliminary Assessment and Plan (1) fever Narrative/Plan: 21-year-old female is and then started to develop a fever. She was feeling quite weak and having severe discomfort with some sciatic- like pain to her left buttocks to thigh. She's feeling considerably better today. Her high fevers and started to charli. Shows good response to cefazolin and gentamicin. At this time the exam is relatively benign. She has no significant tenderness to the uterus area or lower abdomen. She has no flank tenderness. This has some of that discomfort left buttocks consistent with a sciatic type discomfort. This is already showing improvement. At this time given the significant fever the most common concerns would be related to a metritis is responding well to current antibiotic therapy. If she has resolution of her fevers a short course of Augmentin at discharge would be indicated for this mild infectious process. Does not appear to have a viral infection. If fevers persist other concern would be to pelvic phlebitis in nature. Fortunately patient is improving and hopefully will be able to be discharged on oral antibiotic therapy tomorrow. The as well. Current Visit: Yes Status: Acute Code(s): O86.4 - PYREXIA OF UNKNOWN ORIGIN FOLLOWING DELIVERY SNOMED Code(s): 393041781
[2017-05-28] MEDS: LACTATED RINGERS 1,000 ML IV SCH (01:11)
[2017-05-28] MEDS: GENTAMICIN 140 MG in SODIUM CHLORIDE 0.9% 100 ML IVPB SCH ×2 (04:38→10:40)
[2017-05-28 05:49] VITALS: TEMP 97.6
--- NOTE | 2017-05-28 07:16 | P.PNOBGVD ---
Subjective - Subjective Patient reports: Reports appetite normal, Reports voiding normally, Reports pain well controlled, Reports ambulating normally : doing well Objective - Latest Vital Signs Latest vital signs: Vital Signs Temp Pulse Resp BP Pulse Ox 05/28/17 05:49 97.6 F 05/28/17 04:33 97.7 F 05/27/17 20:55 100.0 F H 05/27/17 20:00 100.3 F H 94 16 144/74 100 05/27/17 16:00 97.9 F 80 16 122/70 05/27/17 12:23 97.7 F 78 16 136/83 05/27/17 10:40 98.2 F 05/27/17 08:30 101.0 F H 99 16 134/75 Intake and Output 05/27/17 05/28/17 05/28/17 22:59 06:59 14:59 Intake Total 100 Balance 100 Intake: IV 100 Gentamicin 140 mg In 100 Sodium Chloride 0.9% 100 ml @ 103.5 mls/hr IVPB Q8H [facility] Rx#:[id number] Other: # Voids 1 - Exam Lungs: bilateral: normal Chest: Normal S1, Normal S2 Extremities: Present: normal Abdomen: Present: normal appearance, soft Uterus: Present: normal, firm - Labs Labs: Microbiology - Last 24 Hours (Table) 05/27/17 09:30 Urine Culture - Preliminary Urine,Catheterized Assessment and Plan (1) Normal labor Narrative/Plan: Post day #4. Patient was seen by infectious disease yesterday and they did not feel patient had any significant infectious etiology however did recommend continuing oral antibiotics upon discharge. Patient's feeling well today without complaints. She had a low-grade temperature last evening but otherwise has been doing better. Uterus is firm nontender. I discussed the evaluation and plan with the patient today and going to discontinue antibiotics after noon and most likely discharge home on oral Augmentin later today. Current Visit: Yes Status: Acute Code(s): O80 - ENCOUNTER FOR FULL-TERM UNCOMPLICATED DELIVERY; Z37.9 - OUTCOME OF DELIVERY, UNSPECIFIED SNOMED Code(s ): 99057248
--- NOTE | 2017-05-28 07:19 | P.DS ---
Providers Date of admission: 05/23/17 21:43 Expected date of discharge: 05/28/17 Attending physician: Cristopher Epperson Consults: 05/27/17 09:01 Consult Physician Stat Consulting Provider: Farooq Davis Consult Reason/Comments: fever of unknown origin, splenomegaly Do you want consulting provider notified?: Yes Primary care physician: Stated None - Discharge Diagnosis(es) (1) Normal labor Current Visit: Yes Status: Acute Hospital Course: Please see dictated H&P for intimate details of this patient's admission. Brief summary this is a 21-year-old 1 para 0 female 39-4/7 weeks gestation admitted to labor and delivery spontaneous rupture membranes in active labor. Patient went on to have an uncomplicated vaginal delivery, however day #2 prior to discharge patient developed a fever to 103. They work up is completely negative including CAT scans and serial CBCs. There was no evidence of endometritis pyelonephritis or other infectious etiology. I do get an infectious disease consult and again they recommended just sending patient home on oral antibiotics. Patient's follow-up with me in the office and given instructions. Procedures: Normal spontaneous vaginal delivery Patient Condition at Discharge: Good Plan - Discharge Summary New Discharge Prescriptions: New Acetaminophen-Codeine 300-30mg [Tylenol w/codeine #3] 1 - 2 each PO Q4HR PRN #30 tab PRN Reason: Mild Pain exceeding Tylenol Ibuprofen [Motrin] 600 mg PO Q6HR PRN #40 tab PRN Reason: Mild Pain Or Fever >= 100.5 Acetaminophen-Codeine 300-30mg [Tylenol w/codeine #3] 1 - 2 each PO Q4HR PRN #30 tab PRN Reason: Moderate To Severe Pain Amoxic-Pot Clav 875-125Mg [Augmentin 875-125] 1 tab PO Q12HR 7 Days #14 tablet Iron Ag/C/B12/Ca/Suc.acid/Stom [Chromagen LF] 1 each PO DAILY #30 tab No Action Pnv No.95/Ferrous Fum/Folic AC [ Multivitamin Tablet] 1 tab PO DAILY Discharge Medication List Pnv No.95/Ferrous Fum/Folic AC [ Multivitamin Tablet] 1 tab PO DAILY [History] Acetaminophen-Codeine 300-30mg [Tylenol w/codeine #3] 1 - 2 each PO Q4HR PRN # 30 tab 11/16/17 [Rx] Ibuprofen [Motrin] 600 mg PO Q6HR PRN #40 tab 05/26/17 [Rx] Acetaminophen-Codeine 300-30mg [Tylenol w/codeine #3] 1 - 2 each PO Q4HR PRN # 30 tab 05/28/17 [Rx] Amoxic-Pot Clav 875-125Mg [Augmentin 875-125] 1 tab PO Q12HR 7 Days #14 tablet 05/28/17 [Rx] Iron Ag/C/B12/Ca/Suc.acid/Stom [Chromagen LF] 1 each PO DAILY #30 tab 05/28/17 [ Rx] Follow up Appointment(s)/Referral(s): Cristopher Epperson MD [STAFF PHYSICIAN] - 07/12/17 9:45 am Patient Instructions/Handouts: Vaginal Delivery (DC) Activity/Diet/Wound Care/Special Instructions: No intercourse or anything per vagina for 6 weeks. Please call if any fever, chills, excessive vaginal bleeding, and/or abdominal pain Discharge Disposition: HOME SELF-CARE
[2017-05-28] MEDS: ceFAZolin 1,000 MG in DEXTROSE/WATER 1 50ML.BAG IVPB SCH (08:46)
[2017-05-28] MEDS: IRON AG/C/B12/CA/SUC.ACID/STOM 1 EACH TAB PO SCH (08:47)
[2017-05-28] MEDS: SENNOSIDES-DOCUSATE SODIUM 1 EACH TAB PO SCH (09:09)
[2017-05-28 11:01] VITALS: RESP 20
[2017-05-28 11:02] VITALS: BP 126/71; PULSE 74
[2017-05-28] MEDS: PRENATAL VIT-IRON-FOLIC ACID 1 EACH CAP PO SCH (12:17)
[2017-05-28] MEDS: Acetaminophen-Codeine 300-30mg TAB PO PRN (12:40)
== END 2017-05-28 12:30 | disposition home or self-care (01) | DRG 560 ==
LOC: FBPOP 21:24 → 4FBP 21:43
PROVIDERS: ADMIT Obstetrics & Gynecology; ATTEND Obstetrics & Gynecology
PROC: 10E0XZZ Delivery of Products of Conception, External Approach (ICD-10-PCS; principal; 2017-05-24)
PROC: 0HQ9XZZ Repair Perineum Skin, External Approach (ICD-10-PCS; 2017-05-24)
DX: O42.92 Full-term premature rupture of membranes, unspecified as to length of time between rupture and onset of labor (principal); O71.4 Obstetric high vaginal laceration alone; Z37.0 Single live birth; O86.4 Pyrexia of unknown origin following delivery; D64.89 Other specified anemias; O99.02 Anemia complicating childbirth; O99.89 Other specified diseases and conditions complicating pregnancy, childbirth and the puerperium; O99.62 Diseases of the digestive system complicating childbirth; R12 Heartburn; M54.32 Sciatica, left side; Z3A.39 39 weeks gestation of pregnancy; Z88.1 Allergy status to other antibiotic agents; Z88.2 Allergy status to sulfonamides
CPT/HCPCS: 59025; 74177; 80048; 80170; 84112; 85025; 87040; 87086; 88307; 90471; 90715; 99213

== ENCOUNTER → 2018-09-07 | Outpatient (CLI) | payer OTHER ==
--- NOTE | 2018-09-07 13:59 | XR ---
EXAMINATION TYPE: XR hand complete LT DATE OF EXAM: 09/07/2018 CLINICAL HISTORY: Injured hand particularly middle finger with pain. TECHNIQUE: Frontal, lateral and oblique images of the left hand are obtained. COMPARISON: None. FINDINGS: There is no acute fracture/dislocation evident in the left hand with particular attention to left third finger. The joint spaces in the left hand appear within normal limits. The overlying s oft tissue appears unremarkable. IMPRESSION: There is no acute fracture or dislocation in the left hand.
== END | disposition home or self-care (01) ==
LOC: RADXRMAIN 12:38
PROVIDERS: ATTEND Emergency Medicine
DX: M65.842 Other synovitis and tenosynovitis, left hand (principal)

== ENCOUNTER 2019-01-06 07:40 | Outpatient (CLI) | payer BC, OTHER ==
[2019-01-06 08:38] LABS: Appearance,Urine Cloudy (Clear); Bacteria,Urine Many /hpf; Bilirubin,Urine 1+ (Negative); Blood,Urine Trace (Negative); Color,Urine Yellow; Glucose,Urine (UA) Negative (Negative); Ketones,Urine Trace (Negative); Leukocyte Esterase,Urine Large (Negative); Mucus,Urine Many /hpf; Nitrite,Urine Negative (Negative); PH, Urine 5.5 (5.0-8.0); Protein,Urine 1+ (Negative); RBC,Urine 2 /hpf (0-5); Specific Gravity,Urine 1.016 (1.001-1.035); Squamous Epithelial Cell,Urine 7 /hpf (0-4); WBC,Urine 50 /hpf (0-5)
[2019-01-06 09:35] LABS: Basophils % (A) 0 %; Eosinophils # (A) 0.1 k/uL (0-0.7); Eosinophils % (A) 1 %; HCT 31.9 % (34.0-46.0); HGB 10.2 gm/dL (11.4-16.0); Lymphocytes # (A) 1.2 k/uL (1.0-4.8); Lymphocytes % (A) 12 %; MCV 90.5 fL (80.0-100.0); Monocytes # (A) 0.6 k/uL (0-1.0); Monocytes % (A) 6 %; Neutrophils # (A) 8.3 k/uL (1.3-7.7); Neutrophils % (A) 80 %; Platelet Count 282 k/uL (150-450); RBC 3.52 m/uL (3.80-5.40); RDW 15.6 % (11.5-15.5); WBC 10.4 k/uL (3.8-10.6)
[2019-01-06 09:44] LABS: ALT 281 U/L (9-52); AST 129 U/L (14-36); African American GFR (CKD) >90 (>60 ml/min/1.73 sqM); Albumin 3.5 g/dL (3.5-5.0); Alkaline Phosphatase 165 U/L (38-126); Anion Gap 10 mmol/L; Blood Urea Nitrogen 6 mg/dL (7-17); Calcium 8.8 mg/dL (8.4-10.2); Carbon Dioxide 22 mmol/L (22-30); Chloride 105 mmol/L (98-107); Glucose 96 mg/dL (74-99); Potassium 4.1 mmol/L (3.5-5.1); Sodium 137 mmol/L (137-145); Total Bilirubin 1.3 mg/dL (0.2-1.3); Total Protein 6.7 g/dL (6.3-8.2)
[2019-01-06] MEDS: LACTATED RINGERS 1,000 ML IV SCH ×3 (10:00→19:53)
[2019-01-06] MEDS ORDERED: GENTAMICIN PER PHARMACY MISCELLANE SCH (10:00)
--- NOTE | 2019-01-06 10:01 | P.HPOB ---
History of Present Illness H&P Date: 01/06/19 Chief Complaint: Intrauterine at 22 weeks: Pyelonephritis Zayra is a 23-year-old female 22 weeks with abdominal discomfort and flank pain as well as what grossly appears to be a urinary tract infection. I believe she has early #5 is as she does have tenderness along her costovertebral angles. CBC is pending as is other blood work, overall she is stable and now that she does not have a fever anymore she feels significantly better. She relates that last night she did have a temperature of 101. Her vital signs stable and otherwise afebrile at this time. On physical exam heart regular, lungs clear, extremities without pain. Abdomen is soft and nontender. As patient is noted she does have costovertebral angle tenderness. Assessment early pyelonephritis Plan IV antibiotics Past Medical History Past Medical History: No Reported History History of Any Multi-Drug Resistant Organisms: None Reported Past Surgical History: No Surgical Hx Reported Past Anesthesia/Blood Transfusion Reactions: No Reported Reaction Smoking Status: Never smoker - Past Family History Mother Family Medical History: No Reported History Medications and Allergies Home Medications Medication Instructions Recorded Confirmed Type Pnv No.95/Ferrous Fum/Folic AC 1 tab PO DAILY 03/29/17 01/06/19 History [ Multivitamin Tablet] Iron Ag/C/B12/Ca/Suc.acid/Stom 1 each PO DAILY #30 tab 05/28/17 01/06/19 Rx [Multigen] Allergies Allergy/AdvReac Type Severity Reaction Status Date / Time sulfamethoxazole Allergy Rash/Hives Verified 01/06/19 07:59 [From Bactrim] trimethoprim [From Bactrim] Allergy Rash/Hives Verified 01/06/19 07:59 Exam Osteopathic Statement: *. No significant issues noted on an osteopathic structural exam other than those noted in the History and Physical/Consult. Intake and Output 01/05/19 01/06/19 01/06/19 22:59 06:59 14:59 Other: Weight 114 kg Results Result Diagrams: 01/06/19 09:26 01/06/19 09:26 Abnormal Lab Results - Last 24 Hours (Table) 01/06/19 01/06/19 01/06/19 Range/Units 07:55 09:26 09:26 RBC 3.52 L (3.80-5.40) m/uL Hgb 10.2 L (11.4-16.0) gm/dL Hct 31.9 L (34.0-46.0) % RDW 15.6 H (11.5-15.5) % Neutrophils # 8.3 H (1.3-7.7) k/uL BUN 6 L (7-17) mg/dL AST 129 H (14-36) U/L ALT 281 H (9-52) U/L Alkaline Phosphatase 165 H (38-126) U/L Urine Appearance Cloudy H (Clear) Urine Protein 1+ H (Negative) Urine Ketones Trace H (Negative) Urine Blood Trace H (Negative) Urine Bilirubin 1+ H (Negative) Ur Leukocyte Esterase Large H (Negative) Urine WBC 50 H (0-5) /hpf Urine WBC Clumps Few H (None) /hpf Ur Squamous Epith Cells 7 H (0-4) /hpf Urine Bacteria Many H (None) /hpf Urine Mucus Many H (None) /hpf
[2019-01-06] MEDS: GENTAMICIN 120 MG in SODIUM CHLORIDE 0.9% 100 ML IVPB SCH ×2 (11:56→19:52)
[2019-01-06] MEDS ORDERED: ONDANSETRON 4 MG/2 ML VIAL IVP PRN (13:12)
--- NOTE | 2019-01-06 14:20 | US ---
EXAMINATION TYPE: US abdomen complete DATE OF EXAM: 01/06/2019 COMPARISON: None. CLINICAL HISTORY: pain. Abdomen cramping. N/V. 22 weeks . Abnormal liver enzymes. Patient is not NPO- To do exam now per doctor. Previous CT showed enlarged liver and spleen. EXAM MEASUREMENTS: Liver Length: 21.3 cm Gallbladder Wall: 0.1 cm Spleen: 14.9 cm Right Kidney: 11.3 x 5.7 x 5.2 cm Left Kidney: 11.6 x 5.3 x 5.2 cm Limited exam due to overlying bowel gas Pancreas: Appears slightly echogenic in appearance. Tail obscured by overlying bowel gas Liver: Enlarged. Scanned through ribs due to overlying bowel gas. Suboptimal visualization Gallbladder: No stones or sludge seen Evidence for sonographic Taylor's sign: neg CBD: Obscured by overlying bowel gas Spleen: Enlarged Right Kidney: wnl Left Kidney: wnl Upper IVC: Limited visualization due to overlying bowel gas Abd Aorta: Distal portion not visualized due to overlying bowel gas Limited views of the pancreas are unremarkable. The liver is enlarged measuring 21 cm. Gallbladder is unremarkable. Gallbladder wall measures 1 mm. The distal common hepatic duct was not m easured. There is no sonographic Tayolr's sign. The spleen is enlarged measuring 15 cm. Both kidneys are normal. Visualized portions of aorta and IVC are normal. IMPRESSION: 1. HEPATOSPLENOMEGALY. 2. LIMITED EXAM.
[2019-01-06 14:40] LABS: ALT 278 U/L (9-52); AST 141 U/L (14-36)
[2019-01-06 14:42] LABS: Basophils % (A) 0 %; Eosinophils % (A) 0 %; HCT 31.1 % (34.0-46.0); HGB 10.2 gm/dL (11.4-16.0); Lymphocytes # (A) 0.3 k/uL (1.0-4.8); Lymphocytes % (A) 3 %; MCH 29.1 pg (25.0-35.0); MCHC 32.9 g/dL (31.0-37.0); MCV 88.4 fL (80.0-100.0); Mean Platelet Volume 7.6; Monocytes # (A) 0.4 k/uL (0-1.0); Monocytes % (A) 4 %; Neutrophils # (A) 9.4 k/uL (1.3-7.7); Neutrophils % (A) 92 %; Platelet Count 268 k/uL (150-450); RBC 3.52 m/uL (3.80-5.40); WBC 10.3 k/uL (3.8-10.6)
--- NOTE | 2019-01-06 15:05 | P.PN ---
Progress Note - Text Progress Note Date: 01/06/19 Called to reexamine Vanna this afternoon as she was having episodes of uncontrollable shivering. Due to the some unusual finding we did order an ultrasound of her abdomen and the ultrasound revealed hepatosplenomegaly with undetermined etiology. She is noted to have a normal white count I did repeated as I was trying to verify that she was not having her white blood cell count continued to go down and get getting septic she is afebrile and her vital signs are otherwise stable. Her liver enzymes at our still elevated but stable. It is unclear at this time what the source of her hepatosplenomegaly may be I suspect likely viral but will have control medicine consult and trying to better delineate what the cause of her unusual symptomatology is. She has been throwing up this afternoon as well we have advised her to decrease the fluid and certainly not eating anything while she still feeling nauseous and a dose of Zofran was given. As I am unclear as to etiology, Dr. Mills was counseled for internal medicine and will try and help elucidate the's a source of infection as well as potential reasons for her hepatosplenomegaly. Overall she is still stable voices minimal complaints and the shivering is now abated.
[2019-01-06 15:20] VITALS: BMI 38.2
[2019-01-06 18:11] LABS: Glucose,Whole Blood 124 mg/dL (75-99)
--- NOTE | 2019-01-06 20:12 | P.PN ---
Progress Note - Text Progress Note Date: 01/06/19 I was called to come and evaluate Vanna again this evening. Earlier this evening she had an episode of diaphoresis and some mild tachypnea as well as becoming somewhat hypotensive with several blood pressures in the 91/46 range. Abdominal evaluation she had just been seen I intramenstrual medicine and they were fluid bolus. In evaluating her she relates that earlier she would felt very sick and it was not filling well and was feeling very tired, however by the time I was here to evaluate her she relates that she is feeling "great". In comparing her state now versus last night, she relates that her overall health was a 4 out of 10 last night but today she is 8-9 out of 10 feeling much improved. She rates her pain in her upper quadrant and back is a 0 out of 10 at this time. Her last blood pressure was 98/50. She seems khurram this time and we'll continue close observational care and continued cautious management.
[2019-01-06 21:38] LABS: Amphetamine Screen,Urine Not Detected (NotDetected); Barbiturate Screen,Urine Not Detected (NotDetected); Benzodiazepines Screen,Urine Not Detected (NotDetected); Cocaine Screen,Urine Not Detected (NotDetected); Methadone Screen, Urine Not Detected (NotDetected); Opiate Screen,Urine Not Detected (NotDetected); Oxycodone Screen, Urine Not Detected (NotDetected); Phencyclidine Screen,Urine Not Detected (NotDetected); Tricyclic Antidepressant,Urine Not Detected (NotDetected); Urn Cannabinoid Scrn Not Detected (NotDetected)
[2019-01-06 23:29] LABS: Hepatitis A Antibody IgM Non-Reactive (Non-Reactive); Hepatitis B Core IgM Non-Reactive (Non-Reactive)
--- NOTE | 2019-01-07 01:15 | P.CONS ---
History of Present Illness - Reason for Consult Consult date: 01/06/19 Hepatosplenomegaly - Chief Complaint Abdominal cramps - History of Present Illness Patient is a 23-year-old female otherwise currently 22 week intrauterine came to the hospital with the complaints of right lower abdominal discomfort and right flank pain. Patient has been having fever and lightheadedness for the past 1 week. Patient was also having chills for the past 2 days and night sweats and has been having worsening back pain for the past 3-4 days. Patient states that she was having fever at home up to 10 2F. Patient has been afebrile since admission. Denied any cough or sputum production. No sore throat or symptoms of upper respiratory tract infection. Patient has been having nausea and a few episodes of vomiting. No diarrhea. Urinalysis showed cloudy with large leukocyte esterase and WBCs 50. Squamous epithelial cells 7. Patient otherwise denied any dysuria or hematuria. Patient is currently being treated for acute urinary tract infection with ceftriaxone and gentamicin. Patient was found to have elevated liver enzymes AST 128 ALT 281 alk phos 165. ultrasound of the abdomen which showed hepatosplenomegaly. Patient denied any previous history of hepatomegaly. Denied any other recent illnesses. No alcohol use. Denied any recent travel. Patient says that her daughter was sick with fever and upper respiratory infection about 2 weeks ago which has resolved now. No history of CHF. Patient was hypotensive with SBP in 80s. Currently on IV hydration. WBC 10.2, hemoglobin 10.3 and platelet count 2 68,000. Review of Systems Constitutional: Subjective fevers and chills at home. . No generalized weakness or weight loss. Abdomen: Nausea, Vomiting and abdominal pain.. Cardiovascular: Patient denies any chest pain or short of breath no palpitations. No leg swelling. Respiratory: patient denied any cough is from production. No shortness of breath Neurologic: Patient denied any numbness or tingling headache. Musculoskeletal: Patient denies any complaints of joint swelling or deformity. Skin: Negative Psychiatric: Negative Endocrine: No heat or cold intolerance. No recent weight gain. Genitourinary: No dysuria or hematuria. All other 14 point ROS negative except the above Past Medical History Past Medical History: No Reported History History of Any Multi-Drug Resistant Organisms: None Reported Past Surgical History: No Surgical Hx Reported Past Anesthesia/Blood Transfusion Reactions: No Reported Reaction Smoking Status: Never smoker - Past Family History Mother Family Medical History: No Reported History Medications and Allergies Home Medications Medication Instructions Recorded Confirmed Type Pnv No.95/Ferrous Fum/Folic AC 1 tab PO DAILY 03/29/17 01/06/19 History [ Multivitamin Tablet] Iron Ag/C/B12/Ca/Suc.acid/Stom 1 each PO DAILY #30 tab 05/28/17 01/06/19 Rx [Multigen] Allergies Allergy/AdvReac Type Severity Reaction Status Date / Time sulfamethoxazole Allergy Rash/Hives Verified 01/06/19 07:59 [From Bactrim] trimethoprim [From Bactrim] Allergy Rash/Hives Verified 01/06/19 07:59 Physical Exam Vitals: Vital Signs Temp Pulse Resp BP Pulse Ox 01/06/19 20:30 97.5 F L 66 19 97/52 01/06/19 19:50 97.6 F 73 18 98/57 98 01/06/19 19:00 77 18 91/46 01/06/19 18:43 98.0 F 70 18 88/48 01/06/19 18:30 74 20 87/46 01/06/19 17:15 75 22 91/38 94 L 01/06/19 17:00 98.6 F 82 22 91/46 01/06/19 13:00 98.4 F 112 H 16 117/76 01/06/19 12:00 98.6 F 83 16 112/59 01/06/19 09:00 97.3 F L 100 16 117/67 01/06/19 08:45 97.3 F L 100 14 117/67 Intake and Output 01/06/19 01/06/19 01/06/19 06:59 14:59 22:59 Other: # Voids 3 Weight 114 kg PHYSICAL EXAMINATION: Patient is lying in the bed comfortably, no acute distress, awake alert and oriented.. HEENT: Normocephalic. Neck is supple. Pupils reactive. Nostrils clear. Oral cavity is moist. Ears reveal no drainage. Neck reveals no JVD, carotid bruits, or thyromegaly. CHEST EXAMINATION: Trachea is central. Symmetrical expansion. Lung patel clear to auscultation and percussion. CARDIAC: Normal S1, S2 with no gallops. No murmurs ABDOMEN: Soft. Mild right lower quadrant and right flank tenderness. No guarding no rigidity. Bowel sounds normal. No organomegaly. No abdominal bruits. Extremities: reveal no edema. No clubbing or cyanosis Neurologically awake, alert, oriented x3 with well-coordinated movements. No focal deficits noted Skin: No rash or skin lesions. Psychiatric: Coperative. Nonsuicidal Musculoskeletal: No joint swelling or deformity. Normal range of motion. Results CBC & Chem 7: 01/06/19 14:12 01/06/19 09:26 Labs: Abnormal Lab Results - Last 24 Hours (Table) 01/06/19 01/06/19 01/06/19 Range/Units 07:55 09:26 09:26 RBC 3.52 L (3.80-5.40) m/uL Hgb 10.2 L (11.4-16.0) gm/dL Hct 31.9 L (34.0-46.0) % RDW 15.6 H (11.5-15.5) % Neutrophils # 8.3 H (1.3-7.7) k/uL Lymphocytes # (1.0-4.8) k/uL BUN 6 L (7-17) mg/dL POC Glucose (mg/dL) (75-99) mg/dL AST 129 H (14-36) U/L ALT 281 H (9-52) U/L Alkaline Phosphatase 165 H (38-126) U/L Urine Appearance Cloudy H (Clear) Urine Protein 1+ H (Negative) Urine Ketones Trace H (Negative) Urine Blood Trace H (Negative) Urine Bilirubin 1+ H (Negative) Ur Leukocyte Esterase Large H (Negative) Urine WBC 50 H (0-5) /hpf Urine WBC Clumps Few H (None) /hpf Ur Squamous Epith Cells 7 H (0-4) /hpf Urine Bacteria Many H (None) /hpf Urine Mucus Many H (None) /hpf 01/06/19 01/06/19 01/06/19 Range/Units 14:12 14:12 18:05 RBC 3.52 L (3.80-5.40) m/uL Hgb 10.2 L (11.4-16.0) gm/dL Hct 31.1 L (34.0-46.0) % RDW 16.0 H (11.5-15.5) % Neutrophils # 9.4 H (1.3-7.7) k/uL Lymphocytes # 0.3 L (1.0-4.8) k/uL BUN (7-17) mg/dL POC Glucose (mg/dL) 124 H (75-99) mg/dL AST 141 H (14-36) U/L ALT 278 H (9-52) U/L Alkaline Phosphatase (38-126) U/L Urine Appearance (Clear) Urine Protein (Negative) Urine Ketones (Negative) Urine Blood (Negative) Urine Bilirubin (Negative) Ur Leukocyte Esterase (Negative) Urine WBC (0-5) /hpf Urine WBC Clumps (None) /hpf Ur Squamous Epith Cells (0-4) /hpf Urine Bacteria (None) /hpf Urine Mucus (None) /hpf Assessment and Plan Assessment: -Acute urinary tract infection with possible pyonephritis. -Sepsis secondary to above. -Hypotension -Transaminitis -Hepatosplenomegaly etiology unclear at this time. We will rule out infective causes. Acute hepatitis panel and EBV was ordered. Unlikely CHF with BNP level not elevated. -Patient does not have any hepatomegaly in the past. CBC with differential showed no abnormal changes. Follow-up LFTs. No ductal abdominal dis-noted in the ultrasound of the abdomen-limited. Bilirubin within normal limits. Patient will need repeat imaging and GI follow-up as an outpatient to rule out other differentials. -DVT prophylaxis with early ambulation. Plan: Patient will be given 500 mL normal worsening fluid bolus. Continue with IV hydration and symptomatic management for nausea and vomiting. Tylenol if the patient becomes febrile. Patient will be continued on ceftriaxone and follow-up blood and urine culture reports. Gentamicin can be discontinued. We will follow up closely. CBC and CMP tomorrow. Further recommendations based on the clinical course. Thank you for your consult. Time with Patient: Greater than 30
[2019-01-07] MEDS: GENTAMICIN 120 MG in SODIUM CHLORIDE 0.9% 100 ML IVPB SCH (03:36)
[2019-01-07 07:14] LABS: Basophils % (A) 0 %; Eosinophils % (A) 1 %; HCT 29.6 % (34.0-46.0); HGB 9.8 gm/dL (11.4-16.0); Lymphocytes # (A) 1.2 k/uL (1.0-4.8); Lymphocytes % (A) 14 %; MCH 29.7 pg (25.0-35.0); MCHC 33.1 g/dL (31.0-37.0); MCV 89.6 fL (80.0-100.0); Monocytes # (A) 0.6 k/uL (0-1.0); Monocytes % (A) 7 %; Neutrophils # (A) 6.2 k/uL (1.3-7.7); Neutrophils % (A) 74 %; Platelet Count 258 k/uL (150-450); RDW 15.9 % (11.5-15.5); WBC 8.4 k/uL (3.8-10.6)
[2019-01-07 07:22] LABS: ALT 270 U/L (9-52); AST 140 U/L (14-36); African American GFR (CKD) >90 (>60 ml/min/1.73 sqM); Albumin 2.8 g/dL (3.5-5.0); Alkaline Phosphatase 132 U/L (38-126); Anion Gap 6 mmol/L; Blood Urea Nitrogen 3 mg/dL (7-17); Calcium 8.3 mg/dL (8.4-10.2); Carbon Dioxide 22 mmol/L (22-30); Chloride 107 mmol/L (98-107); Glucose 87 mg/dL (74-99); Potassium 3.8 mmol/L (3.5-5.1); Sodium 135 mmol/L (137-145); Total Bilirubin 1.1 mg/dL (0.2-1.3); Total Protein 5.6 g/dL (6.3-8.2)
[2019-01-07] MEDS: LACTATED RINGERS 1,000 ML IV SCH (08:16)
--- NOTE | 2019-01-07 09:36 | P.PN ---
Progress Note - Text Progress Note Date: 01/07/19 Zayra is seen and evaluated this morning. Overall she is stable and relates that she is feeling better today. We'll plan to continue the IV antibiotics through today and into tomorrow with likely discharged home tomorrow. She and I had a long discussion 1 findings of her hepatosplenomegaly and elevated liver enzymes and her need for follow-up as it is not didn't worked up previously despite noting that was present in 2017. In the discharge medications will plan to have her see Dr. Diana. I also warned her that there is a good chance that she will be at least evaluated by maternal- medicine for similar finding just to make sure there is nothing else that we are missing with regard to her medical care. On physical exam her vital signs are stable and she is afebrile. She continues to go through episodes of hypotension with 80s over 30s medicines given fluid boluses for these and they seem to of stabilizer resolved. We'll plan to continue care for now. Otherwise her heart is regular, lungs are clear and her extremities are without pain. Abdomen soft nontender and she does have bowel sounds. Assessment intrauterine 21 weeks with UTI versus pyelonephritis. Hepatosplenomegaly with elevated liver enzymes. Plan as above.
[2019-01-07] MEDS: SODIUM CHLORIDE 0.9% 1,000 ML IV SCH ×2 (13:59→20:37)
--- NOTE | 2019-01-08 00:18 | P.PN ---
Subjective Progress Note Date: 01/07/19 Principal diagnosis: Acute urinary tract infection Hepatosplenomegaly Patient is a 23-year-old female otherwise currently 22 week intrauterine came to the hospital with the complaints of right lower abdominal discomfort and right flank pain. Patient has been having fever and lightheadedness for the past 1 week. Patient was also having chills for the past 2 days and night sweats and has been having worsening back pain for the past 3-4 days. Patient states that she was having fever at home up to 10 2F. Patient has been afebrile since admission. Denied any cough or sputum production. No sore throat or symptoms of upper respiratory tract infection. Patient has been having nausea and a few episodes of vomiting. No diarrhea. Urinalysis showed cloudy with large leukocyte esterase and WBCs 50. Squamous epithelial cells 7. Patient otherwise denied any dysuria or hematuria. Patient is currently being treated for acute urinary tract infection with ceftriaxone and gentamicin. Patient was found to have elevated liver enzymes AST 128 ALT 281 alk phos 165. ultrasound of the abdomen which showed hepatosplenomegaly. Patient denied any previous history of hepatomegaly. Denied any other recent illnesses. No alcohol use. Denied any recent travel. Patient says that her daughter was sick with fever and upper respiratory infection about 2 weeks ago which has resolved now. No history of CHF. Patient was hypotensive with SBP in 80s. Currently on IV hy dration. WBC 10.2, hemoglobin 10.3 and platelet count 2 68,000. 01/07/2019 Patient did improve clinically. SBP is upper 90s. 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 Patient will need outpatient follow-up. Hepatitis panel is negative. We will also rule out portal vein thrombosis. Otherwise his urine cultures are pending. Continued on ceftriaxone. Flank pain/back pain is improving. IV fluids will be changed to normal saline. Patient has been afebrile. No chest pain or shortness of breath. No nausea vomiting or diarrhea. Current medications reviewed. Objective - Vital Signs Vital signs: Vital Signs Temp 98.8 F 01/08/19 00:00 Pulse 93 01/08/19 00:00 Resp 16 01/08/19 00:00 BP 112/63 01/08/19 00:00 Pulse Ox 94 L 01/07/19 08:29 Intake & Output 01/07/19 01/07/19 01/08/19 06:59 18:59 06:59 Intake Total 1000 Balance 1000 Intake: Intake, IV Titration 1000 Amount Sodium Chloride 0.9% 1, 1000 000 ml @ 100 mls/hr IV . Q10H [facility] Rx#:[id number] Other: # Voids 1 3 1 - Exam PHYSICAL EXAMINATION: Patient is lying in the bed comfortably, no acute distress, awake alert and oriented.. HEENT: Normocephalic. Neck is supple. Pupils reactive. Nostrils clear. Oral cavity is moist. Ears reveal no drainage. Neck reveals no JVD, carotid bruits, or thyromegaly. CHEST EXAMINATION: Trachea is central. Symmetrical expansion. Lung patel clear to auscultation and percussion. CARDIAC: Normal S1, S2 with no gallops. No murmurs ABDOMEN: Soft. Bowel sounds normal. No organomegaly. No abdominal bruits. Extremities: reveal no edema. No clubbing or cyanosis Neurologically awake, alert, oriented x3 with well-coordinated movements. No focal deficits noted Skin: No rash or skin lesions. Psychiatric: Coperative. Nonsuicidal Musculoskeletal: No joint swelling or deformity. Normal range of motion. - Labs CBC & Chem 7: 01/07/19 06:50 01/07/19 06:50 Labs: Abnormal Lab Results - Last 24 Hours (Table) 01/07/19 01/07/19 Range/Units 06:50 06:50 RBC 3.30 L (3.80-5.40) m/uL Hgb 9.8 L (11.4-16.0) gm/dL Hct 29.6 L (34.0-46.0) % RDW 15.9 H (11.5-15.5) % Sodium 135 L (137-145) mmol/L BUN 3 L (7-17) mg/dL Creatinine 0.49 L (0.52-1.04) mg/dL Calcium 8.3 L (8.4-10.2) mg/dL AST 140 H (14-36) U/L ALT 270 H (9-52) U/L Alkaline Phosphatase 132 H (38-126) U/L Total Protein 5.6 L (6.3-8.2) g/dL Albumin 2.8 L (3.5-5.0) g/dL Microbiology - Last 24 Hours (Table) 01/06/19 07:55 Urine Culture - Preliminary Urine,Clean Catch Gram Neg Bacilli 01/06/19 14:12 Blood Culture - Preliminary Blood No Growth after 24 hours Assessment and Plan Assessment: -Acute urinary tract infection with possible pyonephritis. Urine culture showed gram-negative bacilli. -Sepsis secondary to above. -Hypotension resolved. -Transaminitis. slight improvement. -Hepatosplenomegaly etiology unclear at this time. We will rule out infective causes. Acute hepatitis panel is negative. EBV was ordered. Unlikely CHF with BNP level not elevated. -Patient does have hepatomegaly since 2017. CBC with differential showed no abnormal changes. Follow-up LFTs. No ductal abdominal dis-noted in the ultrasound of the abdomen-limited. Bilirubin within normal limits. We will also rule out Care[place] thrombosis while in hospital. Patient will need repeat imaging and GI follow-up as an outpatient to rule out other differentials. -DVT prophylaxis with early ambulation. Plan: Patient was given 500 mL normal worsening fluid bolus with improvement in blood pressure.. Continue with IV hydration and symptomatic management for nausea and vomiting. Tylenol if the patient becomes febrile. Patient will be continued on ceftriaxone and follow-up blood and urine culture reports. We will follow up closely. CBC and CMP tomorrow. Further recommendations based on the clinical course. Thank you for your consult. Time with Patient: Greater than 30
--- NOTE | 2019-01-08 06:28 | P.PN ---
Progress Note - Text Progress Note Date: 01/08/19 Hospital day #3. Patient is resting without new complaints and general feeling well. Vital signs remained stable and afebrile. Primary urine culture is positive for gram-negative bacilli, presumably E. coli but awaiting culture results. Patient had a ultrasound scheduled for dating my office to complete the anatomy however we'll go ahead and do a complete ultrasound here. In discussion with the patient she had splenomegaly 2016 however she did not really have any follow-up with Dr. Diana at that time. This appears to be a chronic problem with superimposed, nephritis/complicated UTI. Her pyelonephritis appears improved and most likely be stable for discharge home on outpatient anti biotics. She'll have to have serial liver function tests done as an outpatient follow-up with medicine for this. Plan from an obstetrical standpoint is in a complete OB ultrasound today. Cleared by medicine we'll discharge home on oral Keflex.
[2019-01-08] MEDS: SODIUM CHLORIDE 0.9% 1,000 ML IV SCH (06:34)
[2019-01-08 07:54] LABS: Anisocytosis Slight; Basophils % (A) 0 %; Eosinophils # (A) 0.1 k/uL (0-0.7); Eosinophils % (A) 1 %; HCT 31.6 % (34.0-46.0); HGB 10.4 gm/dL (11.4-16.0); Hypochromasia Slight; Lymphocytes # (A) 1.4 k/uL (1.0-4.8); Lymphocytes % (A) 18 %; MCH 29.7 pg (25.0-35.0); MCHC 32.8 g/dL (31.0-37.0); MCV 90.7 fL (80.0-100.0); Mean Platelet Volume 7.9; Monocytes # (A) 0.5 k/uL (0-1.0); Monocytes % (A) 6 %; Neutrophils # (A) 5.5 k/uL (1.3-7.7); Neutrophils % (A) 73 %; Platelet Count 270 k/uL (150-450); RBC 3.49 m/uL (3.80-5.40); RDW 16.2 % (11.5-15.5); WBC 7.5 k/uL (3.8-10.6)
[2019-01-08 08:06] LABS: ALT 262 U/L (9-52); AST 93 U/L (14-36); African American GFR (CKD) >90 (>60 ml/min/1.73 sqM); Albumin 3.1 g/dL (3.5-5.0); Alkaline Phosphatase 151 U/L (38-126); Anion Gap 9 mmol/L; Blood Urea Nitrogen 4 mg/dL (7-17); Calcium 8.5 mg/dL (8.4-10.2); Carbon Dioxide 23 mmol/L (22-30); Chloride 107 mmol/L (98-107); Glucose 75 mg/dL (74-99); Sodium 139 mmol/L (137-145); Total Bilirubin 0.9 mg/dL (0.2-1.3); Total Protein 6.2 g/dL (6.3-8.2)
--- NOTE | 2019-01-08 08:32 | US ---
EXAMINATION TYPE: US abdomen limited DATE OF EXAM: 01/08/2019 COMPARISON: 01/06/2019 abdominal ultrasound CLINICAL HISTORY: To rule out portal vein thrombosis.. renal infection, 21 weeks EXAM MEASUREMENTS: Liver Length: 22.9 cm Gallbladder Wall: 0.2 cm CBD: 0.4 cm Right Kidney: 11.7 x 5.7 x 7.1 cm Pancreas: wnl Liver: portal vein appears wnl with no internal echoes and flow seen Gallbladder: wnl Evidence for sonographic Taylor's sign: no CBD: wnl Right Kidney: Prominence of the renal collecting system IMPRESSION: 1. No sonographic evidence of portal vein thrombosis. 2. Mild prominence of the renal collecting system may be physiologic in correlate to very m ild hydronephrosis.
--- NOTE | 2019-01-08 08:35 | US ---
EXAMINATION TYPE: US OB >= 14 wk fetus DATE OF EXAM: 01/08/2019 COMPARISON: None CLINICAL HISTORY: Pyelonephritis and TECHNIQUE: OBTA GESTATIONAL AGE / DATING Physician Established: (21 weeks/2 days) EDC: 05/19/2019 Dates by LMP: LMP unknown Dates by First Scan: No previous this is first scan Dates by Current Scan: (21 weeks/3 days) EDC: 05/18/2019 SURVEY IUP: Single PLACENTA: Posterior PREVIA: No Previa FÉLIX: 16.0 cm Normal CERVICAL LENGTH (transabdominal: norm > 3.0cm): bladder not fully distended and shadowing limits view of cx BIOMETRY PRESENTATION: Vertex LIE: Longitudinal BPD: 5.3 cm 22 weeks / 0 days HC: 18.8 cm 21 weeks / 1 days AC: 17.2 cm 22 weeks / 1 days FL: 3.7 cm 21 weeks / 5 days ESTIMATED WEIGHT IN GRAMS: 457 grams ESTIMATED WEIGHT IN LBS/OZ: 1 lbs. 0 oz. HC/AC: 1.1 Normal FL/AC: 21.5 Normal HEART RATE: 150 bpm RHYTHM: Normal IMPRESSION: Single live intrauterine with a sonographic age of 21 weeks and 3 days and estimated date o f delivery of 05/18/2019, concordant with menstrual age. heart rate is within normal limits megan ured at 150 bpm, FÉLIX is within normal limits measuring 16.0 cm, and cervical length is poorly evaluat ed given the urinary bladder was not fully distended and created shadowing.
[2019-01-08 10:52] LABS: EBV-EA (IgG) 0.3 AI; EBV-EBNA(IgG) >8.0 AI; EBV-VCA (IgG) >8.0 AI
--- NOTE | 2019-01-08 12:26 | P.PN ---
Subjective From the records Patient is a 23-year-old female otherwise currently 22 week intrauterine came to the hospital with the complaints of right lower abdominal discomfort and right flank pain. Patient has been having fever and lightheadedness for the past 1 week. Patient was also having chills for the past 2 days and night sweats and has been having worsening back pain for the past 3-4 days. Patient states that she was having fever at home up to 10 2F. Patient has been afebrile since admission. Denied any cough or sputum productio n. No sore throat or symptoms of upper respiratory tract infection. Patient has been having nausea and a few episodes of vomiting. No diarrhea. Urinalysis showed cloudy with large leukocyte esterase and WBCs 50. Squamous epithelial cells 7. Patient otherwise denied any dysuria or hematuria. Patient is currently being treated for acute urinary tract infection with ceftriaxone and gentamicin. Patient was found to have elevated liver enzymes AST 128 ALT 281 alk phos 165. ultrasound of the abdomen which showed hepatosplenomegaly. Patient denied any previous history of hepatomegaly. Denied any other recent illnesses. No alcohol use. Denied any recent travel. Patient says that her daughter was sick with fever and upper respiratory infection about 2 weeks ago which has resolved now. No history of CHF. Patient was hypotensive with SBP in 80s. Currently on IV hydration. WBC 10.2, hemoglobin 10.3 and platelet count 2 68,000. 01/07/2019 Patient did improve clinically. SBP is upper 90s. 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 Patient will need outpatient follow-up. Hepatitis panel is negative. We will also rule out portal vein thrombosis. Otherwise his urine cultures are pending. Continued on ceftriaxone. Flank pain/back pain is improving. IV fluids will be changed to normal saline. Patient has been afebrile. No chest pain or shortness of breath. No nausea vomiting or diarrhea. Current medications reviewed. Subjective 01/08/2019, this is the first day I am taking care of the patient This is a pleasant 23 years old female at 22 weeks weakness E, presents with right lower quadrant abdominal pain and right side back pain of a few days assoc iated with burning urination. Patient found to have urinary tract infection and she's been started on antibiotics ceftriaxone 2 g daily, patient still have some symptoms of right lower quadrant tenderness although is improving from its/10 down to 5-6/10, and some discomfort also in the right lower back. So patient complaining of from dysuria. Urine culture is pending chronic gram-negative bacilli however final results are pending. Also on exam she has right CVA tenderness. During abdominal ultrasound patient was found to have hepatosplenomegaly. Patient states that she has history of splenomegaly since 2017. Hepatitis panel was negative as well as abdominal ultrasound sound for gallbladder, also including Doppler was negative for thrombosis in the portal veins, I discussed these findings with the radiologist by myself and she confirmed the findings as above. However serology came back positive for IgG EBV antibodies. The primary obstetric service R following the case closely for her . Patient denies chest pain or dyspnea or coughing. She denies any complaints in her bowel movements, no dizziness. No leg edema. No weakness or abnormal sensation. I discussed with the patient the need for outpatient follow-up for her hepatosplenomegaly and she agrees to refer her for interdisciplinary professor upon discharge Review of systems CONSTITUTIONAL: No fever, no malaise, no fatigue. HEENT: No recent visual problems or hearing problems. Denied any sore throat. CARDIOVASCULAR: No orthopnea, PND, no palpitations, no syncope. PULMONARY: No shortness of breath, no cough, no hemoptysis. GASTROINTESTINAL: No diarrhea, no nausea, no vomiting, no abdominal pain. Normoactive bowel sounds. NEUROLOGICAL: No headaches, no weakness, no numbness. HEMATOLOGICAL: Denies any bleeding or petechiae. GENITOURINARY: Denies any hematuria MUSCULOSKELETAL/RHEUMATOLOGICAL: Denies any joint pain, swelling. ENDOCRINE: Denies any polyuria or polydipsia. Medication: Ceftriaxone 2 g daily, Zofran 4 mg every 6 hours when necessary, normal saline at 100 mL per hour Right pyelonephritis Hepatosplenomegaly, of unknown significance. There is suggestion its could be chronic. serology came back positive for IgG EBV antibodies. Intrauterine at 22 weeks This is a pleasant 24 years old female who presents with pyelonephritis and hepatosplenomegaly. Patient is already on antibiotics; infectious disease consult, urine culture final results pending. Hepatosplenomegaly with negative ultrasound and Doppler for portal vein thrombosis, serology is positive for EBV IgG, follow-up infectious disease recommendation. Primary obstetric team following the patient for her . It was recommended patient follow-up with her PCP within one week and interdisciplinary professor within 7-10 days on discharge. I discussed the plan of care with the patient and she agrees with it, at bedside upon patient request Objective - Vital Signs Vital signs: Vital Signs Temp 97.4 F L 01/08/19 09:00 Pulse 79 01/08/19 09:00 Resp 16 01/08/19 09:00 BP 98/44 01/08/19 09:00 Pulse Ox 94 L 01/07/19 08:29 Intake & Output 01/07/19 01/08/19 01/08/19 18:59 06:59 18:59 Intake Total 1999 Balance 1999 Intake: Intake, IV Titration 1999 Amount Sodium Chloride 0.9% 1, 1999 000 ml @ 100 mls/hr IV . Q10H ADY Rx#:[id number] Other: # Voids 3 1 - Exam GENERAL: The patient is alert and oriented x3, not in any acute distress. Well developed, well nourished. HEENT: Pupils are round and equally reacting to light. EOMI. No scleral icterus. No conjunctival pallor. Normocephalic, atraumatic. No pharyngeal erythema. No thyromegaly. CARDIOVASCULAR: S1 and S2 present. No murmurs, rubs, or gallops. PULMONARY: Chest is clear to auscultation, no wheezing or crackles. -ABDOMEN: Soft, RLQ and right CVA tenderness, nondistended, normoactive bowel sounds. No palpable organomegaly. MUSCULOSKELETAL: No joint swelling or deformity. EXTREMITIES: No cyanosis, clubbing, or pedal edema. NEUROLOGICAL: Gross neurological examination did not reveal any focal deficits. SKIN: No rashes. - Labs CBC & Chem 7: 01/08/19 06:26 01/08/19 06:26 Labs: Abnormal Lab Results - Last 24 Hours (Table) 01/06/19 01/08/19 01/08/19 Range/Units 14:12 06:26 06:26 RBC 3.49 L (3.80-5.40) m/uL Hgb 10.4 L (11.4-16.0) gm/dL Hct 31.6 L (34.0-46.0) % RDW 16.2 H (11.5-15.5) % BUN 4 L (7-17) mg/dL AST 93 H (14-36) U/L ALT 262 H (9-52) U/L Alkaline Phosphatase 151 H (38-126) U/L Total Protein 6.2 L (6.3-8.2) g/dL Albumin 3.1 L (3.5-5.0) g/dL EBV Capsid Ag IgG Intrp POSITIVE H (NEGATIVE) EBV Nuc Ag IgG Interp POSITIVE H (NEGATIVE) Microbiology - Last 24 Hours (Table) 01/06/19 07:55 Urine Culture - Preliminary Urine,Clean Catch Gram Neg Bacilli 01/06/19 14:12 Blood Culture - Preliminary Blood No Growth after 24 hours Assessment and Plan Assessment: Right pyelonephritis Hepatosplenomegaly, of unknown significance. There is suggestion its could be chronic. serology came back positive for IgG EBV antibodies. Intrauterine at 22 weeks Plan: This is a pleasant 24 years old female who presents with pyelonephritis and hepatosplenomegaly. Patient is already on antibiotics; infectious disease consult, urine culture final results pending. Hepatosplenomegaly with negative ultrasound and Doppler for portal vein thrombosis, serology is positive for EBV IgG, follow-up infectious disease recommendation. Primary obstetric team following the patient for her . It was recommended patient follow-up with her PCP within one week and interdisciplinary professor within 7-10 days on discharge. I discussed the plan of care with the patient and she agrees with it, at bedside upon patient request
--- NOTE | 2019-01-08 23:57 | P.CONS ---
History of Present Illness - Reason for Consult Consult date: 01/08/19 Right-sided pyelonephritis, positive EBV serology Requesting physician: Milton E Sheet - Chief Complaint Right flank pain no nausea and fever x few days - History of Present Illness Patient is a 23-year-old female who is currently 22 weeks this being her second presenting to the ER with chief complaints of right flank pain patient pain has been more dull aching to sharp 6-7 out of 10 and no radiation is felt nauseated but no vomiting did have associated symptom of urinary burning and frequency in this patient who did have fever of 101 deg jose juan Fahrenheit, with these symptoms the patient has been evaluated she was noticed to have a positive UA and also elevated liver enzymes the patient be started on Rocephin and with urine culture showing gram-negative bacilli the patient EBV serology came back positive mostly with IgM and hepatitis panel was negative for infection disease has been consulted for further recommendations for antibiotics as well as viral serology Review of Systems Positive points has been mentioned in HPI rest of the systems negative Past Medical History Past Medical History: No Reported History History of Any Multi-Drug Resistant Organisms: None Reported Past Surgical History: No Surgical Hx Reported Past Anesthesia/Blood Transfusion Reactions: No Reported Reaction Smoking Status: Never smoker - Past Family History Mother Family Medical History: No Reported History Medications and Allergies Home Medications Medication Instructions Recorded Confirmed Type Pnv No.95/Ferrous Fum/Folic AC 1 tab PO DAILY 03/29/17 01/06/19 History [ Multivitamin Tablet] Iron Ag/C/B12/Ca/Suc.acid/Stom 1 each PO DAILY #30 tab 05/28/17 01/06/19 Rx [Multigen] Cephalexin [Keflex] 500 mg PO Q6HR #28 cap 01/08/19 Rx Allergies Allergy/AdvReac Type Severity Reaction Status Date / Time sulfamethoxazole Allergy Rash/Hives Verified 01/06/19 07:59 [From Bactrim] trimethoprim [From Bactrim] Allergy Rash/Hives Verified 01/06/19 07:59 Physical Exam Vitals: Vital Signs Temp Pulse Resp BP 01/08/19 09:00 97.4 F L 79 16 98/44 01/08/19 00:00 98.8 F 93 16 112/63 01/07/19 20:00 98.4 F 83 16 85/40 01/07/19 16:00 97.9 F 77 16 89/45 Intake and Output 01/07/19 01/08/19 01/08/19 22:59 06:59 14:59 Intake Total 1000 1000 Balance 1000 1000 Intake: Intake, IV Titration 1000 1000 Amount Sodium Chloride 0.9% 1, 1000 1000 000 ml @ 100 mls/hr IV . Q10H ADY Rx#:[id number] Other: # Voids 1 1 GENERAL DESCRIPTION: Middle-aged female lying in bed, no distress. No tachypnea or accessory muscle of respiration use. HEENT: Shows Pallor , no scleral icterus. Oral mucous membrane is dry. No pharyngeal erythema or thrush NECK: Trachea central, no thyromegaly. LUNGS: Unlabored breathing. Clear to auscultation anteriorly. No wheeze or crackle. HEART: S1, S2, regular rate and rhythm. No loud murmur ABDOMEN: Soft, no tenderness , guarding or rigidity, no organomegaly EXTREMITIES: No edema of feet. SKIN: No rash, no masses palpable. NEUROLOGICAL: The patient is awake, alert, oriented x3, mood and affect normal Results CBC & Chem 7: 01/08/19 06:26 01/08/19 06:26 Labs: Abnormal Lab Results - Last 24 Hours (Table) 01/06/19 01/08/19 01/08/19 Range/Units 14:12 06:26 06:26 RBC 3.49 L (3.80-5.40) m/uL Hgb 10.4 L (11.4-16.0) gm/dL Hct 31.6 L (34.0-46.0) % RDW 16.2 H (11.5-15.5) % BUN 4 L (7-17) mg/dL AST 93 H (14-36) U/L ALT 262 H (9-52) U/L Alkaline Phosphatase 151 H (38-126) U/L Total Protein 6.2 L (6.3-8.2) g/dL Albumin 3.1 L (3.5-5.0) g/dL EBV Capsid Ag IgG Intrp POSITIVE H (NEGATIVE) EBV Nuc Ag IgG Interp POSITIVE H (NEGATIVE) Microbiology - Last 24 Hours (Table) 01/06/19 07:55 Urine Culture - Preliminary Urine,Clean Catch Gram Neg Bacilli 01/06/19 14:12 Blood Culture - Preliminary Blood No Growth after 24 hours Assessment and Plan Assessment: 1-patient presented to hospital with right flank pain, Nausea urinary symptoms did have positive UA with urine growing a gram-negative bacilli likely secondary to right-sided pyelonephritis with possible E. coli to the likely pathogen in this patient who has not been on antibiotic in the recent past could be sensitive pathogen 2- patient with EBV serology IgG positive IgM is negative more likely indicating a previous infection and not related to her current symptomatology 3-elevated liver enzymes so far workup is negative including concerns of the liver and hepatitis panel Plan: 1- Rocephin 2 g daily to continue while waiting for the urine culture finalized 2-gentle IV fluid 3-no need for further workup for possible EBV serology we will follow up on clinical condition and cultures to further adjust medication if needed Thank you for this consultation will follow this patient along with you Time with Patient: Greater than 30
[2019-01-09] MEDS: SODIUM CHLORIDE 0.9% 1,000 ML IV SCH ×2 (01:41→08:38)
--- NOTE | 2019-01-09 06:34 | P.PN ---
Progress Note - Text Progress Note Date: 01/09/19 Hospital day #4. Patient continues to rest without new complaints. Vital signs are stable she is afebrile. Patient was seen by medicine yesterday again and they request she stay until today. We are awaiting the identification of the gram-negative bacilli growing out of her urine, presumably E. coli. Liver function tests are stable. Obstetrical ultrasound yesterday was normal. Plan today is to continue current care and patient is stable for discharge home, however we'll await final clearance from medicine.
--- NOTE | 2019-01-09 06:37 | P.DS ---
Providers Date of admission: 01/06/19 08:57 Expected date of discharge: 01/09/19 Attending physician: Cristopher Epperson Consults: 01/06/19 14:57 Consult Physician Urgent Consulting Provider: Tom Mills Consult Reason/Comments: hepatosplenomegaly Do you want consulting provider notified?: Yes 01/08/19 11:34 Consult Physician Urgent Consulting Provider: Annalisa Villanueva Consult Reason/Comments: positive EBV IgG, right pyelonephritis Do you want consulting provider notified?: Yes Primary care physician: Stated None Hospital Course: Please see dictated H&P per Dr. Reynoso on this patient's admission. Brief summary this pleasant 23-year-old multiparous patient admitted 22 weeks gestation with complaints of back pain and fever and thought to have pyelonephritis. Incidentally patient was also found to have hepatosplenomegaly which was previously noted approximately 2-1/2 years ago. Patient's liver tests were mildly elevated. There is no evidence of acute hepatitis. Urine at the time of discharge was growing gram-negative bacilli which appeared patient was responding well to antibiotics. Patient's felt be stable for discharge home follow up me on January 22 is scheduled. She'll follow up with her family doctor for her hepatosplenomegaly and I will continue to watch her liver function tests. Patient Condition at Discharge: Good Plan - Discharge Summary New Discharge Prescriptions: New Cephalexin [Keflex] 500 mg PO Q6HR #28 cap No Action Pnv No.95/Ferrous Fum/Folic AC [ Multivitamin Tablet] 1 tab PO DAILY Iron Ag/C/B12/Ca/Suc.acid/Stom [Multigen] 1 each PO DAILY #30 tab Discharge Medication List Pnv No.95/Ferrous Fum/Folic AC [ Multivitamin Tablet] 1 tab PO DAILY 03/29/17 [History] Iron Ag/C/B12/Ca/Suc.acid/Stom [Multigen] 1 each PO DAILY #30 tab 05/28/17 [Rx] Cephalexin [Keflex] 500 mg PO Q6HR #28 cap 01/08/19 [Rx] Follow up Appointment(s)/Referral(s): Cristopher Epperson MD [STAFF PHYSICIAN] - 01/22/19 Jarred Diana DO [Doctor of Osteopathic Medicine] - 1 Week Genet Rdz MD [STAFF PHYSICIAN] - 10 Days Activity/Diet/Wound Care/Special Instructions: She will need follow-up with Dr. Chilango Diana at her nearest convenience for further workup of her hepatosplenomegaly
[2019-01-09 07:11] LABS: ALT 213 U/L (9-52); AST 69 U/L (14-36); African American GFR (CKD) >90 (>60 ml/min/1.73 sqM); Alkaline Phosphatase 162 U/L (38-126); Anion Gap 8 mmol/L; Blood Urea Nitrogen 5 mg/dL (7-17); Calcium 8.7 mg/dL (8.4-10.2); Carbon Dioxide 21 mmol/L (22-30); Chloride 109 mmol/L (98-107); Glucose 77 mg/dL (74-99); Potassium 4.2 mmol/L (3.5-5.1); Sodium 138 mmol/L (137-145); Total Bilirubin 0.8 mg/dL (0.2-1.3)
[2019-01-09 08:37] VITALS: BP 95/47; PULSE 74; RESP 16; TEMP 98
--- NOTE | 2019-01-09 13:51 | P.PN ---
Subjective From the records Patient is a 23-year-old female otherwise currently 22 week intrauterine came to the hospital with the complaints of right lower abdominal discomfort and right flank pain. Patient has been having fever and lightheadedness for the past 1 week. Patient was also having chills for the past 2 days and night sweats and has been having worsening back pain for the past 3-4 days. Patient states that she was having fever at home up to 10 2F. Patient has been afebrile since admission. Denied any cough or sputum productio n. No sore throat or symptoms of upper respiratory tract infection. Patient has been having nausea and a few episodes of vomiting. No diarrhea. Urinalysis showed cloudy with large leukocyte esterase and WBCs 50. Squamous epithelial cells 7. Patient otherwise denied any dysuria or hematuria. Patient is currently being treated for acute urinary tract infection with ceftriaxone and gentamicin. Patient was found to have elevated liver enzymes AST 128 ALT 281 alk phos 165. ultrasound of the abdomen which showed hepatosplenomegaly. Patient denied any previous history of hepatomegaly. Denied any other recent illnesses. No alcohol use. Denied any recent travel. Patient says that her daughter was sick with fever and upper respiratory infection about 2 weeks ago which has resolved now. No history of CHF. Patient was hypotensive with SBP in 80s. Currently on IV hydration. WBC 10.2, hemoglobin 10.3 and platelet count 2 68,000. 01/07/2019 Patient did improve clinically. SBP is upper 90s. 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 Patient will need outpatient follow-up. Hepatitis panel is negative. We will also rule out portal vein thrombosis. Otherwise his urine cultures are pending. Continued on ceftriaxone. Flank pain/back pain is improving. IV fluids will be changed to normal saline. Patient has been afebrile. No chest pain or shortness of breath. No nausea vomiting or diarrhea. Current medications reviewed. Subjective 01/08/2019, this is the first day I am taking care of the patient This is a pleasant 23 years old female at 22 weeks weakness E, presents with right lower quadrant abdominal pain and right side back pain of a few days assoc iated with burning urination. Patient found to have urinary tract infection and she's been started on antibiotics ceftriaxone 2 g daily, patient still have some symptoms of right lower quadrant tenderness although is improving from its/10 down to 5-6/10, and some discomfort also in the right lower back. So patient complaining of from dysuria. Urine culture is pending chronic gram-negative bacilli however final results are pending. Also on exam she has right CVA tenderness. During abdominal ultrasound patient was found to have hepatosplenomegaly. Patient states that she has history of splenomegaly since 2017. Hepatitis panel was negative as well as abdominal ultrasound sound for gallbladder, also including Doppler was negative for thrombosis in the portal veins, I discussed these findings with the radiologist by myself and she confirmed the findings as above. However serology came back positive for IgG EBV antibodies. The primary obstetric service R following the case closely for her . Patient denies chest pain or dyspnea or coughing. She denies any complaints in her bowel movements, no dizziness. No leg edema. No weakness or abnormal sensation. I discussed with the patient the need for outpatient follow-up for her hepatosplenomegaly and she agrees to refer her for medical care administrator upon discharge 01/09/2019 Patient continued to improve and her dysuria symptoms are completely resolved as per patient, urine habits his back to usual state. Her right lower quadrant pain and tenderness are improving significantly, rigid today is 2/10 by patient. Her right CVA pain and tenderness are completely resolved as 0/10. No other complaints. No chest pain or dyspnea. No coughing. No change in bowel habits. No weakness or dizziness. It looks like the primary team are planning to discharge the patient today. Discussed with the staff that we need to wait for the culture and sensitivity of the urine before final decision of antibiotics as per infectious disease recommendation. Infectious disease input is appreciated Also patient has elevated liver enzymes which are trending down with AST from 93 down to 69 and ALT from 262 down to 213. Bilirubin is within normal limits. Patient says that she has a known history of hepatosplenomegaly that she de velops after her first . However patient with no symptoms. Patient was instructed to follow-up with her medical care administrator within 7-10 days of discharge. Patient agrees and she stated she wants to make her own appointments. Also patient was instructed to follow up with her primary care physician Dr. Diana within one week, patient also agrees and wants to make her own appointments. Discussed with staff Objective - Vital Signs Vital signs: Vital Signs Temp 98 F 01/09/19 08:36 Pulse 74 07/02/19 08:36 Resp 16 01/09/19 08:36 BP 95/47 01/09/19 08:36 Pulse Ox 100 01/08/19 23:37 Intake & Output 01/08/19 01/09/19 01/09/19 18:59 06:59 18:59 Intake Total 1050 Balance 1050 Intake: Intake, IV Titration 1050 Amount Sodium Chloride 0.9% 1, 1000 000 ml @ 100 mls/hr IV . Q10H ADY Rx#:[id number] cefTRIAXone 2 gm In 50 Sodium Chloride 0.9% 50 ml @ 100 mls/hr IVPB Q24HR ADY Rx#:[id number] Other: # Voids 2 2 - Exam GENERAL: The patient is alert and oriented x3, not in any acute distress. Well developed, well nourished. HEENT: Pupils are round and equally reacting to light. EOMI. No scleral icterus. No conjunctival pallor. Normocephalic, atraumatic. No pharyngeal erythema. No thyromegaly. CARDIOVASCULAR: S1 and S2 present. No murmurs, rubs, or gallops. PULMONARY: Chest is clear to auscultation, no wheezing or crackles. -ABDOMEN: Soft, RLQ and right CVA tenderness, nondistended, normoactive bowel sounds. No palpable organomegaly. MUSCULOSKELETAL: No joint swelling or deformity. EXTREMITIES: No cyanosis, clubbing, or pedal edema. NEUROLOGICAL: Gross neurological examination did not reveal any focal deficits. SKIN: No rashes. - Labs CBC & Chem 7: 01/08/19 06:26 01/09/19 06:47 Labs: Abnormal Lab Results - Last 24 Hours (Table) 01/09/19 Range/Units 06:47 Chloride 109 H (98-107) mmol/L Carbon Dioxide 21 L (22-30) mmol/L BUN 5 L (7-17) mg/dL Creatinine 0.48 L (0.52-1.04) mg/dL AST 69 H (14-36) U/L ALT 213 H (9-52) U/L Alkaline Phosphatase 162 H (38-126) U/L Total Protein 6.0 L (6.3-8.2) g/dL Albumin 3.0 L (3.5-5.0) g/dL Microbiology - Last 24 Hours (Table) 01/06/19 14:12 Blood Culture - Preliminary Blood No Growth after 48 hours Assessment and Plan Assessment: Right pyelonephritis Hepatosplenomegaly, of unknown significance. There is suggestion its could be chronic. serology came back positive for IgG EBV antibodies. Intrauterine at 22 weeks Plan: This is a pleasant 24 years old female who presents with pyelonephritis and hepatosplenomegaly. Patient is already on antibiotics; infectious disease consult is appreciated, urine culture final results pending. Hepatosplenomegaly with negative ultrasound and Doppler for portal vein thrombosis, serology is positive for EBV IgG, and as per infectious disease recommendation no further workup needed for EBV IgG. Primary obstetric team following the patient for her . It was recommended patient follow-up with her PCP within one week and medical care administrator within 7-10 days on discharge. Patient agrees and states she will make her own appointments Discussed with staff I discussed the plan of care with the patient and she agrees with it, at bedside upon patient request Thank you for consulting us, please feel free to contact us for any further question or clarification.
== END 2019-01-09 14:50 | disposition home or self-care (01) ==
LOC: FBPOP 07:40 → 4FBP 08:57
PROVIDERS: ADMIT Obstetrics & Gynecology; ATTEND Obstetrics & Gynecology
DX: O99.89 Other specified diseases and conditions complicating pregnancy, childbirth and the puerperium (principal); O23.02 Infections of kidney in pregnancy, second trimester; O98.812 Other maternal infectious and parasitic diseases complicating pregnancy, second trimester; O99.412 Diseases of the circulatory system complicating pregnancy, second trimester; A41.9 Sepsis, unspecified organism; N39.0 Urinary tract infection, site not specified; I95.9 Hypotension, unspecified; R74.0 Nonspecific elevation of levels of transaminase and lactic acid dehydrogenase [LDH]; R16.2 Hepatomegaly with splenomegaly, not elsewhere classified; R74.8 Abnormal levels of other serum enzymes; Z3A.22 22 weeks gestation of pregnancy; Z79.899 Other long term (current) drug therapy; Z79.2 Long term (current) use of antibiotics; Z88.2 Allergy status to sulfonamides
CPT/HCPCS: 99213; 86665 ×2; 83880; 80053 ×4; 80074; 86663; 83605; 84450; 84460; 85025 ×3; 81001; 87040; 86664; 80306; 87086; 87077; 87186; 76705; 76700; 76805; G0378 ×4; J2405; J0696 ×4; J1580 ×2

== ENCOUNTER 2019-05-09 10:28 | Outpatient (CLI) | payer BC, OTHER ==
[2019-05-09 11:05] LABS: Appearance,Urine Cloudy (Clear); Bacteria,Urine Rare /hpf; Bilirubin,Urine Negative (Negative); Blood,Urine Negative (Negative); Color,Urine Yellow; Glucose,Urine (UA) Negative (Negative); Ketones,Urine Negative (Negative); Leukocyte Esterase,Urine Small (Negative); Mucus,Urine Few /hpf; Nitrite,Urine Negative (Negative); Protein,Urine Trace (Negative); RBC,Urine 3 /hpf (0-5); Specific Gravity,Urine 1.023 (1.001-1.035); Squamous Epithelial Cell,Urine 21 /hpf (0-4); Urobilinogen,Urine <2.0 mg/dL (<2.0); WBC,Urine 15 /hpf (0-5)
[2019-05-09 11:25] LABS: Basophils % (A) 0 %; Eosinophils # (A) 0.1 k/uL (0-0.7); Eosinophils % (A) 1 %; HCT 32.9 % (34.0-46.0); HGB 10.8 gm/dL (11.4-16.0); Lymphocytes # (A) 1.4 k/uL (1.0-4.8); Lymphocytes % (A) 16 %; MCH 29.2 pg (25.0-35.0); MCHC 32.9 g/dL (31.0-37.0); MCV 88.6 fL (80.0-100.0); Mean Platelet Volume 7.4; Monocytes # (A) 0.5 k/uL (0-1.0); Monocytes % (A) 5 %; Neutrophils # (A) 6.5 k/uL (1.3-7.7); Neutrophils % (A) 75 %; Platelet Count 277 k/uL (150-450); RBC 3.71 m/uL (3.80-5.40); RDW 14.6 % (11.5-15.5); WBC 8.7 k/uL (3.8-10.6)
[2019-05-09 11:39] LABS: ALT 25 U/L (9-52); AST 24 U/L (14-36); African American GFR (CKD) >90 (>60 ml/min/1.73 sqM); Blood Urea Nitrogen 10 mg/dL (7-17); LDH 415 U/L (313-618); Uric Acid 5.2 mg/dL (3.7-7.4)
[2019-05-09 12:00] LABS: INR 0.8 (<1.2); Partial Thromboplastin Time 22.9 sec (22.0-30.0); Prothrombin Time 9.2 sec (9.0-12.0)
--- NOTE | 2019-05-09 17:43 | P.MSEPDOC ---
Presenting Problems - Arrival Data Date of Arrival on Unit: 05/09/19 Time of Arrival on Unit: 10:28 Mode of Transport: Ambulatory - Complaint OB-Reason for Admission/Chief Complaint: Elevated Blood Pressure Comment: Pt sent from office with orders for jose foley Medical History - Information : 2 Para: 1 Term: 1 : 0 Abortions: Spontaneous or Elective: 0 Number of Living Children: 1 - Gestational Age Gestational Age by MARLENE (wks/days): 38 Weeks and 4 Days Physician Notification (Pre) - Physician Notified Physician Notified Date: 05/09/19 Physician Notified Time: 11:53 Physician/Practitioner Notifed:: Zhou Loya Order Received: Yes (d/c home) - Notification Comment Comment: pt d/c with instructions to f/u in office for bp check and nst on tuesday, and iol on tuesday Disposition - Disposition OB Disposition: Discharge to home Discharge Date: 05/09/19 Discharge Time: 12:03 I agree with the RN Medical Screening Exam: Yes Risk & Benefit of care provided described in d/c instruction: Yes Diagnosis: GESTATIONAL HTN W/O SIGNIFICANT PROTEINURIA, THIRD TRIMESTER (Blood pressures and labs normal. No evidence of gest HTN at this time. F/u 2 days for repeat BP/NST Elective induction scheuled for Tuesday.)
== END 2019-05-09 12:03 | disposition home or self-care (01) ==
LOC: FBPOP 10:28
PROVIDERS: ATTEND Obstetrics & Gynecology
DX: O13.3 Gestational [pregnancy-induced] hypertension without significant proteinuria, third trimester (principal); Z3A.38 38 weeks gestation of pregnancy
CPT/HCPCS: 59025; 81001; 82565; 82570; 83615; 84156; 84450; 84460; 84520; 84550; 85025; 85384; 85610; 85730

== ENCOUNTER 2019-05-14 05:38 | Inpatient (IN) | payer BC, OTHER ==
[2019-05-14] MEDS ORDERED: METHYLERGONOVINE 0.2 MG/ML 1 ML AMP IM PRN (05:45)
[2019-05-14] MEDS ORDERED: TERBUTALINE 1 MG/ML VIAL SQ PRN (05:45)
[2019-05-14] MEDS ORDERED: OXYTOCIN 10 UNIT/ML 1 ML VIAL IM PRN (05:45)
[2019-05-14] MEDS ORDERED: LIDOCAINE 0.5% (PF) 5 MG/ML (50 ML SDV) SQ PRN (05:45)
[2019-05-14] MEDS ORDERED: OXYTOCIN 30 UNITS/500 ML NS 30 UNIT in SALINE 1 500ML.BAG IV SCH (05:45)
[2019-05-14] MEDS ORDERED: CARBOPROST TROMETHAMINE 250 MCG/ML 1 ML AMP IM PRN (05:45)
[2019-05-14] MEDS: LACTATED RINGERS 1,000 ML IV SCH ×2 (06:00→10:25)
--- NOTE | 2019-05-14 06:08 | P.HPOB ---
History of Present Illness H&P Date: 05/14/19 Chief Complaint: Requested induction of labor This patient is a pleasant 23-year-old 2 para 1 female estimated date of confinement 05/19/2019 estimated gestational age 39-2/7 weeks who presents to labor and delivery for elective induction of labor. Patient's has been uncomplicated, she did most recently had an elevated blood pressure in the office last week however preeclampsia labs were normal and follow-up blood pressures were normal as well. Patient is uncomfortable is a favorable cervix requested induction at this time. Review of Systems Genitourinary: Reports Menstruation: Reports amenorrhea Past Medical History Past Medical History: No Reported History Additional Past Medical History / Comment(s): History of previous term vaginal delivery 6 lbs. 8 oz. baby girl. 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 History of Any Multi-Drug Resistant Organisms: None Reported Past Surgical History: No Surgical Hx Reported Past Anesthesia/Blood Transfusion Reactions: No Reported Reaction Past Psychological History: No Psychological Hx Reported Smoking Status: Never smoker Past Alcohol Use History: None Reported Past Drug Use History: None Reported - Past Family History Mother Family Medical History: No Reported History Medications and Allergies Home Medications Medication Instructions Recorded Confirmed Type Pnv No.95/Ferrous Fum/Folic AC 1 tab PO DAILY 03/29/17 05/14/19 History [ Multivitamin Tablet] RX: Iron Ag/C/B12/Ca/Suc.acid/Stom 1 each PO DAILY #30 tab 05/28/17 05/14/19 Rx [Multigen] Allergies Allergy/AdvReac Type Severity Reaction Status Date / Time sulfamethoxazole Allergy Rash/Hives Verified 05/14/19 05:45 [From Bactrim] trimethoprim [From Bactrim] Allergy Rash/Hives Verified 05/14/19 05:45 Exam Intake and Output 05/13/19 05/13/19 05/14/19 14:59 22:59 06:59 Other: Weight 123.831 kg - OBG Physical Exam Abdomen: bowel sounds normal, no diffuse tenderness, no bruit present, no guarding noted, no hepatomegaly, no splenomegaly, no mass Vulva: both: normal Vagina: normal moisture, no discharge Cervix: Cervix is 4 cm dilated 80% effaced -2 station Cervix: no lesion, no discharge Uterus: enlarged (Fundal height 38 cm) Results blood work shows she is O positive, rubella immune, RPR nonreactive, hepatitis B negative, group B strep was negative, Glucola was normal, ultrasounds have been normal. Assessment and Plan (1) 39 weeks gestation of Narrative/Plan: This is a pleasant 23-year-old 2 para 1 female 39-2/7 weeks gestation admitted to labor and delivery for requested induction of labor. Plan is induction of labor with Pitocin per protocol. Anticipate vaginal delivery. Alert the rad tech's to the patient's previous child with cranial stenosis. Current Visit: Yes Status: Acute Code(s): Z3A.39 - 39 WEEKS GESTATION OF SNOMED Code(s): 00701146 (2) Elective induction of labor planned Current Visit: Yes Status: Acute Code(s): QSN1231 - SNOMED Code(s): 012643556
[2019-05-14 06:21] VITALS: BMI 41.5
[2019-05-14 06:27] LABS: Basophils % (A) 0 %; Eosinophils % (A) 0 %; HCT 33.8 % (34.0-46.0); HGB 11.3 gm/dL (11.4-16.0); Lymphocytes # (A) 1.9 k/uL (1.0-4.8); Lymphocytes % (A) 20 %; MCH 29.4 pg (25.0-35.0); MCHC 33.4 g/dL (31.0-37.0); Mean Platelet Volume 6.8; Monocytes # (A) 0.5 k/uL (0-1.0); Monocytes % (A) 5 %; Neutrophils # (A) 6.8 k/uL (1.3-7.7); Neutrophils % (A) 73 %; Platelet Count 313 k/uL (150-450); RBC 3.84 m/uL (3.80-5.40); RDW 14.7 % (11.5-15.5); WBC 9.4 k/uL (3.8-10.6)
[2019-05-14] MEDS ORDERED: HYDROCORTISONE 2.5% RECTAL CREAM 30 GM TUBE RECTAL PRN (13:48)
[2019-05-14] MEDS ORDERED: ACETAMINOPHEN TAB 325 MG TAB PO PRN (13:48)
[2019-05-14] MEDS ORDERED: SIMETHICONE 80 MG CHEWABLE PO PRN (13:48)
[2019-05-14] MEDS ORDERED: diphenhydrAMINE 50 MG/ML 1 ML VIAL IVP PRN (13:48)
[2019-05-14] MEDS ORDERED: BISACODYL 10 MG SUPP RECTAL PRN (13:48)
[2019-05-14] MEDS ORDERED: WITCH HAZEL 1 EACH MED..PAD TOPICAL PRN (13:48)
[2019-05-14] MEDS ORDERED: OXYTOCIN 20 UNITS/1000 ML NS 1,000 ML IV SCH (13:48)
[2019-05-14] MEDS ORDERED: ZOLPIDEM 5 MG TAB PO PRN (13:48)
[2019-05-14] MEDS ORDERED: LANOLIN CREAM 5 GM TUBE TOPICAL PRN (13:48)
[2019-05-14] MEDS ORDERED: BENZOCAINE/MENTHOL SPRAY 1 GM/SPRAY AEROSOL TOPICAL PRN (13:48)
[2019-05-14] MEDS ORDERED: diphenhydrAMINE 25 MG CAP PO PRN (13:48)
--- NOTE | 2019-05-14 17:21 | P.PROBDLV ---
Vaginal Delivery Note - . Vaginal Delivery Note: Normal vaginal delivery viable male infant Apgars 8 and 9 delivery time is 1324 hrs. Please see dictated H&P for intimate details of this patient's admission. In brief summary this is a pleasant 23-year-old 2 para 1 female 39 and one sevenths weeks gestation who is admitted to labor and delivery for elective induction of labor. On admission patient's 4 cm dilated has artificial rupture membranes for light meconium-stained fluid. heart tones are category 1. Labor is induced with Pitocin per protocol. Patient does not request anything for pain medications and she does progress to complete. She pushes the head to the perineum the posterior perineum is supported and we have controlled delivery of the 's head over the intact perineum. Mouth and nares are bulb suctioned. There is a nuchal cord 1 which is easily reduced. With gentle downward traction we then have delivery the anterior and posterior shoulder and rest this infant's body. This is a vigorous viable male infant Apgars are 8 and 9 delivery time is 1324 hrs. After delivery of the the umbilical cord is allowed quit pulsating is then doubly clamped and cut. The placenta spontaneously delivered intact. Inspection of the perineum shows no lacerations and no repairs indicated. Infant and mother are stable delivery room. There are no complications.
[2019-05-15] MEDS: SENNOSIDES-DOCUSATE SODIUM 1 EACH TAB PO SCH ×4 (00:12→21:17)
[2019-05-15] MEDS: IBUPROFEN 600 MG TAB PO PRN ×3 (00:41→22:39)
--- NOTE | 2019-05-15 06:19 | P.PNOBGVD ---
Subjective - Subjective Patient reports: Reports appetite normal, Reports voiding normally, Reports pain well controlled, Reports ambulating normally : doing well Objective - Latest Vital Signs Latest vital signs: Vital Signs Temp Pulse Resp BP 05/15/19 00:00 89 16 126/75 05/14/19 20:00 98.2 F 88 16 128/71 05/14/19 15:52 98.3 F 86 16 117/67 05/14/19 15:50 98.3 F 86 16 117/67 05/14/19 15:17 90 16 125/66 05/14/19 14:49 89 18 125/79 05/14/19 14:34 84 18 130/73 05/14/19 14:19 98.2 F 79 18 136/73 05/14/19 14:03 85 18 122/57 05/14/19 13:49 83 18 133/69 Intake and Output 05/14/19 05/14/19 05/15/19 14:59 22:59 06:59 Intake Total 100 Output Total 200 100 Balance -200 0 Intake: Oral 100 Output: Urine 0 Estimated Blood Loss 200 100 Other: # Voids 1 1 - Exam Lungs: bilateral: normal Chest: Normal S1, Normal S2 Extremities: Present: normal Abdomen: Present: normal appearance, soft Uterus: Present: normal, firm - Labs Labs: Abnormal Lab Results - Last 24 Hours (Table) 05/14/19 Range/Units 05:57 Hgb 11.3 L (11.4-16.0) gm/dL Hct 33.8 L (34.0-46.0) % Assessment and Plan Assessment: day #1. Patient is resting without complaints. Vital signs are stable she's afebrile. Uterus is firm nontender she's having normal lochia. My impression is a normal course. Plan is to continue routine care discharge home tomorrow (1) 39 weeks gestation of Current Visit: Yes Status: Acute Code(s): Z3A.39 - 39 WEEKS GESTATION OF SNOMED Code(s): 71579244 (2) Elective induction of labor planned Current Visit: Yes Status: Acute Code(s): SLN2805 - SNOMED Code(s): 459559628
--- NOTE | 2019-05-16 06:28 | P.PNOBGVD ---
Subjective - Subjective Patient reports: Reports appetite normal, Reports voiding normally, Reports pain well controlled, Reports ambulating normally : doing well Objective - Latest Vital Signs Latest vital signs: Vital Signs Temp Pulse Resp BP 05/15/19 23:59 98.0 F 90 16 101/73 05/15/19 16:00 98.3 F 45 L 16 130/74 05/15/19 08:00 97.8 F 81 16 128/80 Intake and Output 05/15/19 05/15/19 05/16/19 14:59 22:59 06:59 Other: # Voids 1 1 1 - Exam Lungs: bilateral: normal Chest: Normal S1, Normal S2 Extremities: Present: normal Abdomen: Present: normal appearance, soft Uterus: Present: normal, firm Assessment and Plan Assessment: day #2. Patient is resting without complaints. Vital signs are stable and she is afebrile. Uterus is firm nontender she's having normal lochia. My impression is a normal course. Plan is to continue routine care discharge home later today. (1) 39 weeks gestation of Current Visit: Yes Status: Acute Code(s): Z3A.39 - 39 WEEKS GESTATION OF SNOMED Code(s): 67223002 (2) Elective induction of labor planned Current Visit: Yes Status: Acute Code(s): MIE3034 - SNOMED Code(s): 955324596
--- NOTE | 2019-05-16 06:35 | P.DS ---
Providers Date of admission: 05/14/19 05:38 Expected date of discharge: 05/16/19 Attending physician: Cristopher Epperson Primary care physician: Stated None - Discharge Diagnosis(es) (1) 39 weeks gestation of Current Visit: Yes Status: Acute (2) Elective induction of labor planned Current Visit: Yes Status: Acute Hospital Course: Please see dictated H&P for intimate details of this patient's admission. Brief summary this pleasant 23-year-old 2 para 1 female 39 and one sevenths weeks gestation admitted to labor and delivery for requested induction of labor. Patient is uncomplicated induction of labor quickly goes on have a vaginal delivery viable male . Please see dictated delivery note day #2 patient's felt to be stable for discharge home follow up with me in 6 weeks. Procedures: Normal spontaneous vaginal delivery Patient Condition at Discharge: Good Plan - Discharge Summary New Discharge Prescriptions: New Ibuprofen [Motrin] 600 mg PO Q6HR PRN #30 tab PRN Reason: Mild Pain Or Fever >= 100.5 No Action Pnv No.95/Ferrous Fum/Folic AC [ Multivitamin Tablet] 1 tab PO DAILY Iron Ag/C/B12/Ca/Suc.acid/Stom [Multigen] 1 each PO DAILY #30 tab Discharge Medication List Pnv No.95/Ferrous Fum/Folic AC [ Multivitamin Tablet] 1 tab PO DAILY 03/29/17 [History] Iron Ag/C/B12/Ca/Suc.acid/Stom [Multigen] 1 each PO DAILY #30 tab 05/28/17 [Rx] Ibuprofen [Motrin] 600 mg PO Q6HR PRN #30 tab 05/16/19 [Rx] Follow up Appointment(s)/Referral(s): Cristopher Epperson MD [STAFF PHYSICIAN] - 06/25/19 10:15 am Patient Instructions/Handouts: Vaginal Delivery (DC) Activity/Diet/Wound Care/Special Instructions: No intercourse or anything per vagina for 6 weeks. Please call if any fever, chills, excessive vaginal bleeding and/or abdominal pain. Discharge Disposition: HOME SELF-CARE
[2019-05-16] MEDS: SENNOSIDES-DOCUSATE SODIUM 1 EACH TAB PO SCH (07:29)
[2019-05-16 08:08] VITALS: BP 119/79; PULSE 83; RESP 18; TEMP 97.7
== END 2019-05-16 10:37 | disposition home or self-care (01) | DRG 807 ==
LOC: 4FBP 05:38
PROVIDERS: ADMIT Obstetrics & Gynecology; ATTEND Obstetrics & Gynecology
PROC: 10E0XZZ Delivery of Products of Conception, External Approach (ICD-10-PCS; principal; 2019-05-14)
PROC: 10907ZC Drainage of Amniotic Fluid, Therapeutic from Products of Conception, Via Natural or Artificial Opening (ICD-10-PCS; 2019-05-14)
PROC: 3E033VJ Introduction of Other Hormone into Peripheral Vein, Percutaneous Approach (ICD-10-PCS; 2019-05-14)
DX: O69.81X0 Labor and delivery complicated by cord around neck, without compression, not applicable or unspecified (principal); Z37.0 Single live birth; O77.0 Labor and delivery complicated by meconium in amniotic fluid; Z3A.39 39 weeks gestation of pregnancy; Z88.1 Allergy status to other antibiotic agents; Z88.2 Allergy status to sulfonamides
CPT/HCPCS: 85025; 86850; 86900; 86901; 88307

== ENCOUNTER 2022-10-31 13:44 | Inpatient (IN) | payer MEDICAID, OTHER ==
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
[2022-10-31 16:07] LABS: Amphetamine Screen,Urine Not Detected (NotDetected); Barbiturate Screen,Urine Not Detected (NotDetected); Benzodiazepines Screen,Urine Not Detected (NotDetected); Cocaine Screen,Urine Not Detected (NotDetected); Methadone Screen, Urine Not Detected (NotDetected); Opiate Screen,Urine Not Detected (NotDetected); Oxycodone Screen, Urine Not Detected (NotDetected); Phencyclidine Screen,Urine Not Detected (NotDetected); Tricyclic Antidepressant,Urine Not Detected (NotDetected); Urn Cannabinoid Scrn Not Detected (NotDetected)
[2022-10-31 16:20] LABS: Appearance,Urine Cloudy (Clear); Bacteria,Urine Occasional /hpf; Bilirubin,Urine Negative (Negative); Blood,Urine Negative (Negative); Color,Urine Light Yellow; Glucose,Urine (UA) Negative (Negative); Ketones,Urine Negative (Negative); Leukocyte Esterase,Urine Negative (Negative); Mucus,Urine Occasional /hpf; Nitrite,Urine Positive (Negative); PH, Urine 6.5 (5.0-8.0); Protein,Urine Negative (Negative); RBC,Urine 2 /hpf (0-5); Specific Gravity,Urine 1.014 (1.001-1.035); Squamous Epithelial Cell,Urine 2 /hpf (0-4); Urobilinogen,Urine <2.0 mg/dL (<2.0); WBC,Urine 2 /hpf (0-5)
[2022-10-31 16:56] LABS: Basophils % (A) 0 %; Eosinophils # (A) 0.1 k/uL (0-0.7); Eosinophils % (A) 1 %; HCT 37.8 % (34.0-46.0); HGB 12.2 gm/dL (11.4-16.0); Lymphocytes # (A) 0.7 k/uL (1.0-4.8); Lymphocytes % (A) 10 %; MCH 28.6 pg (25.0-35.0); MCHC 32.2 g/dL (31.0-37.0); MCV 88.7 fL (80.0-100.0); Mean Platelet Volume 7.1; Monocytes # (A) 0.4 k/uL (0-1.0); Monocytes % (A) 5 %; Neutrophils % (A) 83 %; Platelet Count 254 k/uL (150-450); RBC 4.26 m/uL (3.80-5.40); WBC 7.2 k/uL (3.8-10.6)
[2022-10-31 17:08] LABS: ALT 19 U/L (4-34); AST 20 U/L (14-36); African American GFR (CKD) >90 (>60 ml/min/1.73 sqM); Albumin 4.4 g/dL (3.5-5.0); Alkaline Phosphatase 75 U/L (38-126); Anion Gap 8 mmol/L; Blood Urea Nitrogen 8 mg/dL (7-17); Calcium 8.7 mg/dL (8.4-10.2); Carbon Dioxide 26 mmol/L (22-30); Chloride 105 mmol/L (98-107); Glucose 86 mg/dL (74-99); Non-African American GFR(CKD) >90 (>60 ml/min/1.73 sqM); Potassium 4.1 mmol/L (3.5-5.1); Sodium 139 mmol/L (137-145); Total Bilirubin 0.7 mg/dL (0.2-1.3); Total Protein 7.7 g/dL (6.3-8.2)
[2022-10-31] MEDS ORDERED: ACETAMINOPHEN TAB 325 MG TAB PO PRN (17:33)
[2022-10-31] MEDS ORDERED: MAG HYDROX/AL HYDROX/SIMETH 30 ML CUP PO PRN (17:33)
[2022-10-31] MEDS ORDERED: MAGNESIUM HYDROXIDE 2,400 MG/10 ML CUP PO PRN (17:33)
[2022-10-31] MEDS ORDERED: hydrOXYzine HCL 50 MG/ML 1 ML VIAL IM PRN (17:45)
[2022-10-31] MEDS ORDERED: hydrOXYzine pamoate 25 MG CAP PO PRN (17:47)
[2022-11-01 10:00] LABS: Chol/HDL Ratio 2.92 Ratio; LDL Cholesterol,Calculated 81.3 mg/dL (0.0-131.0); VLDL Calculation 14.02 mg/dL (5.00-40.00)
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
[2022-11-01] MEDS: ESCITALOPRAM 10 MG TAB PO SCH (15:56)
[2022-11-02] MEDS: ESCITALOPRAM 10 MG TAB PO SCH (08:08)
--- NOTE | 2022-11-02 11:32 | P.PN ---
Progress Note - Text Progress Note Date: 11/02/22 Interval hx: Patient was seen today wandering the hallways and was agreeable to be seen by video games storywriter today for follow up. patient was seen in group earlier. she states that overall she is improving mildly since yesterday. she continues to focus on discharge and minimize her need for hospitalization. she agreeable to continue on with the medication. she states that it did cause some Gi upset yesterday but states that she drank more water and is feeling a bit better today. She states that she has been trying to go to groups and participate as best she can. She states that she spoke with her therapist over the phone and need to reschedule her appointment for today. She claims that at this time she is denying any suicidal or homicidal ideations intent or plan. Denying any auditory or visual hallucinations. Mntal status exam General Appearance: Patient appears to be mildly overweight, not tearful, stated age is alert, directable, and attempts to cooperate. Patient appears to have improving hygiene and grooming. Behavior: Patient is seated without any agitated behavior. Superficially cooperative. Speech: Patient's speech is fluent and nonpressured. Mood/Affect: Patient reports their mood is less depressed and anxious, affect is congruent and constricted, improving mildly Suicidality/Homicidality: Patient denies having any homicidal ideation intent or plan. Denies any suicidal ideations intent or plan Perceptions: Patient denies any visual hallucinations and denies any auditory hallucinations Though content/process: There is no evidence of any delusional thought content and thought process is linear and goal-directed. Focused on discharge, superficial Memory and concentration: AOX3, grossly intact for the purposes of this session Judgment and insight: Fair IMPRESSIONS: Major depressive disorder, without psychotic features Anxiety disorder unspecified PLAN: -Patient is admitted under voluntary status to MHU for stabilization of psychiatric symptoms and safety. Patient has signed adult voluntary form and medication consent and is placed in patient's chart. -Medications : continue Lexapro 10 mg daily for mood/anxiety. -Vistaril PRN for agitation/aggression -NRT - not needed as patient does not smoke -SW on board for discharge planning. Encourage patient to participate in groups to work on coping skills. liekly discharge in 1-2 days.
[2022-11-03] MEDS: ESCITALOPRAM 10 MG TAB PO SCH (08:25)
--- NOTE | 2022-11-03 10:26 | P.PN ---
Progress Note - Text Progress Note Date: 11/03/22 Interval hx: Patient was seen today taking part in group today and was agreeable to be seen by travel writer for follow up. patient states that she is doing a bit better today compared to yesterday. She claims that she talk with her grandma this morning over the phone who is her big support. She states that she may be able to spend time with her upon discharge. She also claims that she is taking part in group and working on her anger management skills. She states that she was able to sleep fairly last night. Claims that her appetite is mildly improving since yesterday. She claims that at this time she is denying any suicidal or homicidal ideations intent or plan. Denying any auditory or visual hallucinations. Patient has been taking her medications, not reporting any side effects today. Mntal status exam General Appearance: Patient appears to be mildly overweight, not tearful, stated age is alert, directable, and attempts to cooperate. Patient appears to have improving hygiene and grooming. Behavior: Patient is seated without any agitated behavior. More cooperative today. Speech: Patient's speech is fluent and nonpressured. Mood/Affect: Patient reports their mood is improving mildly, affect is congruent and improving Suicidality/Homicidality: Patient denies having any homicidal ideation intent or plan. Denies any suicidal ideations intent or plan Perceptions: Patient denies any visual hallucinations and denies any auditory hallucinations Though content/process: There is no evidence of any delusional thought content and thought process is linear and goal-directed. Memory and concentration: AOX3, grossly intact for the purposes of this session Judgment and insight: Fair, improving mildly IMPRESSIONS: Major depressive disorder, without psychotic features Anxiety disorder unspecified PLAN: -Patient is admitted under voluntary status to MHU for stabilization of psychiatric symptoms and safety. Patient has signed adult voluntary form and medication consent and is placed in patient's chart. -Medications : continue Lexapro 10 mg daily for mood/anxiety. -Vistaril PRN for agitation/aggression -NRT - not needed as patient does not smoke -SW on board for discharge planning. Encourage patient to participate in groups to work on coping skills. likely discharge tomorrow back home. Sw to contact grandmother and ensure home envt safe and do discharge planning.
[2022-11-04 07:00] VITALS: BP 96/52; PULSE 69; RESP 18; TEMP 97.3
[2022-11-04] MEDS: ESCITALOPRAM 10 MG TAB PO SCH (08:48)
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
== END 2022-11-04 13:23 | disposition home or self-care (01) | DRG 754 ==
LOC: EC 13:44 → 3MHU 17:25
PROVIDERS: ADMIT Psychiatry & Neurology Psychiatry; ATTEND Psychiatry & Neurology Psychiatry
DX: F32.9 Major depressive disorder, single episode, unspecified (principal); R45.851 Suicidal ideations; E66.01 Morbid (severe) obesity due to excess calories; Z20.822 Contact with and (suspected) exposure to COVID-19; Z68.33 Body mass index [BMI] 33.0-33.9, adult; F41.9 Anxiety disorder, unspecified; Z88.2 Allergy status to sulfonamides; Z71.51 Drug abuse counseling and surveillance of drug abuser; Z71.41 Alcohol abuse counseling and surveillance of alcoholic; Z71.9 Counseling, unspecified
CPT/HCPCS: 36415; 80053; 80061; 80306; 81001; 81025; 82075; 83036; 85025; 87635; 99285